=== PATIENT | female | born 1960 | race Caucasian/White ===

== ENCOUNTER 2017-02-11 21:03 | Inpatient (IN) | payer MEDICARE, MEDICAID ==
[~2017-02-11] VITALS: Ht 175.3 cm; Wt 152.0 kg
[~2017-02-11 21:03] MED LIST: ACET325T51 PO; ALBU2.5V4 INHALATION; ALBU8.5H2 INHALATION; AMT25T PO; ASCO-294 PO; BISA10EN RC; CHOL500011 PO; CLOT21CR7 TOPICAL; CYAN10008 PO; FERR-83 PO; FLUT1AER IH; FURO40TA4 PO; HYDR-4003 PO; HYDR200T5 PO; INSU100I13 SUBQ; INSU100I18 SUBQ; LEVO75TA4 PO; LOPE2CAP PO; MAGN400O4 PO; MULT1CAP45 PO; NA P133E23 RC; NYST1POW23 TOPICAL; POLY17PO6 PO; POTA-62 PO; PRE20 PO; PREG50CA PO; TRAM50TA2 PO; ZINC220C7 PO; [UNRECOGNIZED DRUG - CODE] PO
--- NOTE | 2017-02-11 21:06 | ED.REPORT ---
HPI-Extremity Problem Lower Date of Service Feb 11, 2017 ED Provider: Corey Tan MD 56 year old female with a history of diabetes and steroid dependent RA presents to the ER via EMS complaining of several days of right lower extremity pain, swelling and redness. Associated symptoms include three days of fever, shaking chills, dry, cough, and abdominal pain around the pannus area. Patient denies chest pain, SOB, nausea, and vomiting. She does not take anticoagulants, and is not currently on antibiotics. Nursing Notes Stated Complaint: RIGHT LOWER LEG REDNESS Nursing Notes Reviewed: Yes Allergies: Coded Allergies: codeine (Verified Allergy, Intermediate, 02/12/17) Pt states she "passes out" when she takes codeine etodolac (Verified Adverse Reaction, Intermediate, Rash, 02/12/17) Pt states she gets a rash and hives Penicillins (Verified Adverse Reaction, Unknown, 02/12/17) Pt states she has had this since childhood - told by mother - unaware of what the reaction is Uncoded Allergies: SULFA (Adverse Reaction, Mild, Rash, 09/13/09) Scheduled Amino AC/Protein Hydr/Whey Pro (Prosource Protein Liquid) 946 Ml Liquid 30 ML PO BID Amitriptyline (Amitriptyline) 25 Mg Tab 50 MG PO HS Ascorbate Calcium (Vitamin C) 500 Mg Tablet 500 MG PO DAILY Cholecalciferol (Vitamin D3) (Vitamin D3) 5,000 Unit Tablet 5,000 UNIT PO DAILY Cyanocobalamin (Vitamin B-12) (Vitamin B-12) 1,000 Mcg Tablet 1,000 MCG PO DAILY Ferrous Sulfate (Ferrous Sulfate) 325 Mg Tablet 325 MG PO BID Fluticasone/Vilanterol (Breo Ellipta 100-25 Mcg INH) 1 Each Aer.pow.ba 1 EACH IH DAILY Furosemide (Furosemide) 40 Mg Tablet 40 MG PO DAILY Hydrocodone-Acetaminophen 5-325 mg (Hydrocodone-Acetaminophen 5-325 mg) 1 Each Tablet 1 EACH PO TID Hydroxychloroquine Sulfate (Hydroxychloroquine Sulfate) 200 Mg Tablet 200 MG PO DAILY Insulin Glargine (Lantus U100 Solostar Insulin Pen) 100 Unit/1 Ml Insuln.pen 5 UNIT SUBQ QAM Insulin Lispro (HumaLOG U100 Insulin Pen) 100 Unit/1 Ml Insuln.pen UNIT SUBQ ACHS per sliding scale Levothyroxine (Levothyroxine) 75 Mcg Tablet 75 MCG PO DAILY Multivitamin with Minerals (Myvitalife) 1 Each Capsule 1 EACH PO DAILY Nystatin (Nystatin) 1 Each Powder.ea. 1 EACH TOPICAL BID apply to groin Polyethylene Glycol 3350 (Miralax) 17 Gm Powd.pack 17 GM PO DAILY Potassium Chloride ER (Potassium Chloride ER) 20 Meq Tablet.er 40 MEQ PO DAILY TAKE WITH FOOD Prednisone (PredniSONE) 20 Mg Tablet 10 MG PO DAILY Pregabalin (Lyrica) 50 Mg Capsule 50 MG PO TID Zinc Sulfate (Zinc-220) 220 Mg Capsule 220 MG PO DAILY Scheduled PRN Acetaminophen (Acetaminophen) 325 Mg Tablet 650 MG PO Q4H PRN PRN For Pain Albuterol HFA (Proair HFA) 8.5 Gm Hfa.aer.ad 2 PUFFS INHALATION Q4H PRN PRN For Shortness of Breath Albuterol Neb Soln (Albuterol Neb Soln) 2.5 Mg/3 Ml Vial.neb 2.5 MG INHALATION Q4H PRN PRN For Shortness of Breath Bisacodyl (Bisacodyl Rectal) 10 Mg/30 Ml Enema 10 MG RC DAILY PRN PRN For Constipation Clotrimazole 2% (Gyne-Lotrimin 3 2%) 21 Gm Cream.appl 1 APPLIC TOPICAL DAILY PRN PRN groin rash Loperamide (Loperamide) 2 Mg Capsule 2 MG PO QID PRN PRN For Diarrhea or Loose Stool Magnesium Hydroxide (Milk of Magnesia) 400 Mg/5 Ml Oral.susp 30 ML PO DAILY PRN PRN For Constipation Na Phos,M-B/Na Phos,Di-Ba (Fleet Enema) 133 Ml Enema 133 ML RC DAILY PRN PRN For Constipation Tramadol (Tramadol) 50 Mg Tablet 50-100 MG PO Q6H PRN PRN For Pain General Time Seen by MD: 21:05 Chief Complaint Leg injury right Hx Obtained From: Patient Arrived By: Ambulance Onset Occurred: 3 days ago Symptom Duration: Since onset Location: : Leg right Quality: Painful Severity: Current: Moderate Severity: Maximum: Moderate Associated with: Reports: Fever, Denies: Chest pain, Nausea, Vomiting Pertinent Negative: Pt denies other symptoms Past Medical History Past Medical History ho necrotizing fasciitis of groin treated at OSH in March 2016, followed by [facility]. Graves Disease Rheumatoid Arthritis Obesity history of respiratory failure dysphagia obstructive sleep apnea hypothyroidism Reports: Asthma, Diabetes mellitus, GERD, Hypertension Past Surgical History Bilateral Knee Replacements Smoking History Never Smoker Social History Alcohol Use: Denies alcohol use Other Social History: Lives in senior care Review of Systems Constitutional: Reports: Chills, Fever Musculoskeletal: Reports: Extremity pain (Right Leg) Neurologic: Reports: Shaking Complete sys rev & neg: except as marked. Respiratory: Reports: Non-productive cough Cardiovascular: Denies: Chest pain GI: Denies: Nausea, Vomiting Physical Exam Initial Vital Signs Vital Signs (First) Date Time Temp Pulse Resp B/P Pulse Ox O2 Delivery O2 Flow Rate FiO2 02/11/17 21:07 39.0 139 30 109/54 94 Room Air 02/11/17 22:00 3 Initial VS: Reviewed Head / Eyes: Atraumatic, Normocephalic Neck: Supple, Non-tender, Full range of motion Upper Extremities: Vascular intact, Neuro intact, No swelling, No tenderness Skin: Warm, Dry, No cyanosis Neurologic: Alert, Oriented, Nonfocal Lower Extremity / Pelvis / MS: Full range of motion, Neurologic intact, Vascular intact Widespread cellulitis of the right lower extremity extending into the pannus. General/Constitutional: Awake, Alert Distress / Hydration: Positive: Distress mild Appearance / Presentation: Positive: Obese, morbidly Respiratory / Chest: Breath sounds NL, Breath sounds = bilat, No respiratory distress, No rales, No rhonchi, No wheezing Tachypneic. Cardiovascular: Regular rhythm, Heart sounds NL, Peripheral circulation NL Heart Rate / Rhythm: Positive: Tachycardia Female Genitourinary: Consular Officer present External Genitalia: Positive: Erythema present, Tenderness present Mons veneris is tender, red, indurated. Interpretation & Diagnostics Lab Results Interpretation Result Diagram: 02/12/17 0115 02/12/17 0115 Test 02/11/17 21:25 02/11/17 23:27 Erythrocyte Sedimentation Rate 69mm/hr (0-40) Prothrombin Time 11.4sec (8.1-12.5) Prothromb Time International Ratio 1.06ratio Activated Partial Thromboplast Time 36.7sec (22.8-33.0) Magnesium Level 1.4mg/dL (1.6-2.6) Pro-B-Type Natriuretic Peptide 737.9pg/mL (0-287) Lipase 17U/L (13-60) Procalcitonin 1.11ng/mL (0.00-0.08) Urine Color Dark yellow (YELLOW) Urine Appearance Hazy (CLEAR,HAZY) Urine pH 6.5 (5.0-8.0) Urine Specific [place] 1.010 (1.003-1.035) Urine Protein Tracemg/dL (NEG,TRACE) Urine Glucose (UA) Negativemg/dL (NEGATIVE) Urine Ketones Negativemg/dL (NEGATIVE) Urine Occult Blood Negative (NEGATIVE) Urine Nitrite Positive (NEGATIVE) Urine Bilirubin Negative (NEGATIVE) Urine Urobilinogen Normalmg/dL (NORMAL) Urine Leukocyte Esterase Trace (NEGATIVE) Urine RBC 0-2/hpf (0-2) Urine WBC 11-50/hpf (0-5) Urine Epithelial Cells Occasional/hpf (NONE-MOD) Urine Crystals Amorphous urates (NONE Urine Bacteria Many/hpf (NONE-FEW) Urine Hyaline Casts None/lpf (NONE) Urine Granular Casts None seen (NONE SEEN) Urine Waxy Casts None seen (NONE SEEN) Urine Red Blood Cell Casts None seen (NONE SEEN) Urine White Blood Cell Casts None seen (NONE SEEN) Urine Mucus Present (None Seen) Urine Trichomonas None seen (NONE SEEN) Urine Yeast None (NONE SEEN) Urine Culture Reflexed Indicated ECG Interpretation ECG Interpretation: Sinus tachycardia, rate 139 Rate-related ST T wave changes Time: 09:18 Interpreted by: ED physician X-Ray Chest Interpretation Chest Xray Interpretation: Rotated, poor inspiration. Density in the Left lower lobe, probably due to vessel crowding. No indication of pneumonia. View: Portable, 1 view Interpretation / Wet Read by: Wet read ED physician CT Abd / Pelvis Interpretation CONCLUSION: Limited study as described. No acute findings. Cirrhotic changes. Hepatosplenomegaly. Other findings as noted above. Electronically signed by Michael Benitez MD Study type: Abdominal CT IV contrast Interpretation / Wet Read by: Interpret - Radiologist Re-Eval/Medical Decision Med Decision/Clinical Course 56-year-old female with prior history of necrotizing fasciitis, steroid dependency with rheumatoid arthritis, presents with severe cellulitis shaking chills tachycardia and sepsis. Redness is spreading up to the groin and there is pain also in the mons pubis with induration of the fat pad. CT visualizes this well and there is no evident air or other indication of anaerobic infection. She has had blood cultures drawn and is volume resuscitated with 3 L of fluid prior to transfer. Pulse discomfort in the 147 range down to 120 range still not normal. Lactate is elevated at four. She was begun with vancomycin, meropenem, and clindamycin. She is transferred in critical condition to the CCU. Source of Hx: Old records Re-Evaluation/Progress : Time of Eval: 23:35 Patient Status: Pain improved Re-Evaluation/Progress Note: Discussed lab and radiology results and need for admission. Patient is amenable to the plan. All other questions addressed. Consultation : Referral / Consult Name: Levi Feldman MD Consulted With: Hospitalist Call Returned at: 23:49 Pipe Fitter Supervisor: Agrees with eval, Agrees with plan, Accepts admit Counseled Regarding: Diagnosis, Lab results, Need for admission Discharge & Departure Impression: Primary Impression: Sepsis Additional Impressions: Cellulitis of left leg Cellulitis of perineum Disposition: ADMITTED TO HOSPITAL Discharge Condition All VS Reviewed: Yes Condition: Stable Referrals: Fiorella Courtney MD (PCP) Crit Care Except Billable Proc Time Spent: 30-74 minutes Services Performed: Patient management by me, Time spent at bedside, Reviewing test results, Reviewing imaging, Discussing patient care, Documentation in record Scribe Attestation Portions of this note were transcribed by Shawn Haskins. I, Dr. Tan, personally performed the history, physical exam and medical decision-making; I reviewed and confirmed the accuracy of the information in the transcribed note. Signed by: Paolo Nickerson. 02/12/2017 - 00:18 copies to: Fiorella Courtney MD, Christopher W MD Feb 11, 2017 21:06 SHAWN HASKINS Feb 11, 2017 21:22 Urine Epithelial Cells Occasional/hpf (NONE-MOD) Urine Crystals Amorphous urates (NONE Urine Bacteria Many/hpf (NONE-FEW) Urine Hyaline Casts None/lpf (NONE) Urine Granular Casts None seen (NONE SEEN) Urine Waxy Casts None seen (NONE SEEN) Urine Red Blood Cell Casts None seen (NONE SEEN) Urine White Blood Cell Casts None seen (NONE SEEN) Urine Mucus Present (None Seen) Urine Trichomonas None seen (NONE SEEN) Urine Yeast None (NONE SEEN) Urine Culture Reflexed Indicated ECG Interpretation ECG Interpretation: Sinus tachycardia, rate 139 Rate-related ST T wave changes Time: 09:18 Interpreted by: ED physician X-Ray Chest Interpretation Chest Xray Interpretation: Rotated, poor inspiration. Density in the Left lower lobe, probably due to vessel crowding. No indication of pneumonia. View: Portable, 1 view Interpretation / Wet Read by: Wet read ED physician CT Abd / Pelvis Interpretation CONCLUSION: Limited study as described. No acute findings. Cirrhotic changes. Hepatosplenomegaly. Other findings as noted above. Electronically signed by Michael Benitez MD Study type: Abdominal CT IV contrast Interpretation / Wet Read by: Interpret - Radiologist Re-Eval/Medical Decision Source of Hx: Old records Re-Evaluation/Progress : Time of Eval: 23:35 Patient Status: Pain improved Re-Evaluation/Progress Note: Discussed lab and radiology results and need for admission. Patient is amenable to the plan. All other questions addressed. Consultation : Referral / Consult Name: Levi Feldman MD Consulted With: Hospitalist Call Returned at: 23:49 Pipe Fitter Supervisor: Agrees with eval, Agrees with plan, Accepts admit Counseled Regarding: Diagnosis, Lab results, Need for admission Discharge & Departure Impression: Primary Impression: Sepsis Additional Impressions: Cellulitis of left leg Cellulitis of perineum Disposition: ADMITTED TO HOSPITAL Discharge Condition All VS Reviewed: Yes Condition: Stable Referrals: Fiorella Courtney MD (PCP) Crit Care Except Billable Proc Time Spent: 30-74 minutes Services Performed: Patient management by me, Time spent at bedside, Reviewing test results, Reviewing imaging, Discussing patient care, Documentation in record Scribe Attestation Portions of this note were transcribed by Shawn Haskins. I, Dr. Tan, personally performed the history, physical exam and medical decision-making; I reviewed and confirmed the accuracy of the information in the transcribed note. Signed by: Paolo Nickerson. 02/12/2017 - 00:18 copies to: Fiorella Courtney MD, Christopher W MD Feb 11, 2017 21:06 SHAWN HASKINS Feb 11, 2017 21:22
[2017-02-11 21:07] VITALS: BP 109/54; PULSE 139; RESP 30; O2SAT 94
[2017-02-11] MEDS ORDERED: Meropenem Inj 1,000 MG in 0.9% Sodium Chloride 100 ML IV ONE (21:20)
[2017-02-11] MEDS ORDERED: Vancomycin Dose per Pharmacist XX ONE (21:20)
[2017-02-11] MEDS ORDERED: Hydrocortisone 50 mg/mL 2 mL Inj IV ONE (21:20)
[2017-02-11] MEDS ORDERED: Clindamycin Inj 900 MG in IV Premix 1 EACH IV ONE (21:20)
[2017-02-11] MEDS ORDERED: Vancomycin Inj 2,250 MG in 0.9% Sodium Chloride 500 ML IV ONE (21:30)
[2017-02-11] MEDS: 0.9% Sodium Chloride 1,000 ML IV PRN ×3 (21:31→23:36)
[2017-02-11 21:39] LABS: BASOPHILS % (AUTO) 0.3 % (0-3); EOSINOPHILS % (AUTO) 0.5 % (0-5); MONOCYTES % (AUTO) 6.1 % (4-12); Mean Corpuscular Hemoglobin 30.3 pg (27.0-35.0); Mean Corpuscular Volume 92.4 fL (81-100); NEUTROPHILS % (AUTO) 77.8 % (40-74); Platelet Count 83 bil/L (150-400)
--- NOTE | 2017-02-11 21:42 | ABG ---
DateTimeAnalyzed 21:39:00 -_ pH ____7.466 - 7.350 7.450 pCO2 ___37.0__ -mmHg 35.0 45.0 pO2 ___52.8__ -mmHg 69.0 116 HCO3- ___26.3__ -mmol/L 22.0 26.0 ABE ____3.1__ -mmol/L -2.0 2.0 tHb ___14.0__ -g/dL O2Hb ___87.8__ -% COHb ____2.0__ -% MetHb ____0.7__ -% sO2 ___90.2__ -% FIO2 ___21.0__ -% Drawn By AF - Date/Time Notified____ 21:41:00 -_ Notified By AF - Notified Whom ___Dr. Tan - B 762 -mmHg tO2 ___17.3__ -Vol% OrderingPhysicianInitials CR - Jaswinder test _Positive -
[2017-02-11 21:56] LABS: INR 1.06 ratio
[2017-02-11] MEDS ORDERED: 0.9% Sodium Chloride 100 ML ONE (21:58)
[2017-02-11 22:00] VITALS: BP 94/49; PULSE 139; RESP 35; O2SAT 100
[2017-02-11 22:21] LABS: ERYTHROCYTE SEDIMENTATION RATE 69 mm/hr (0-40)
[2017-02-11 22:23] LABS: Magnesium 1.4 mg/dL (1.6-2.6)
[2017-02-11 22:28] LABS: TROPONIN T 0.127 ug/L (0.0-0.011)
[2017-02-11 23:00] VITALS: BP 103/47; PULSE 141; RESP 28; O2SAT 97
[2017-02-12] VITALS (13 sets, daily range): BP systolic 94–118; BP diastolic 45–74; PULSE 84–132; RESP 11–32; O2SAT 92–97
[2017-02-12] MEDS ORDERED: HYDROmorphone 0.5 mg/0.5 mL iSecure Syringe IVPUSH PRN (00:30)
[2017-02-12] MEDS ORDERED: Ondansetron 2 mg/mL 2 mL Inj IVPUSH PRN ×2 (00:30→00:40)
--- NOTE | 2017-02-12 00:37 | PCM.HPMED ---
Subjective Date of Service Feb 12, 2017 Primary Provider: Admitting Physician: Primary Care Physician: Fiorella Courtney MD Attending Physician: Chief Complaint: Right Lower leg redness History of Present Illness: Patient is a 56 y.o. F with past medical history of necrotizing fasciitis in the right groin area, status post lengthy hospitalization at [facility] in March and April, during which time she underwent extensive surgical debridement, ultimately with discharge to [facility] for ongoing care, morbid obesity, has uncontrolled type II diabetes, and RA. She presented to ED via EMS with complaint of several day pain of right lower extremity with redness and swelling. Patient stated that two days ago she noticed bleeding from her right groin, and redness and swelling to the skin with increased warmth and pain, over the next 24 hours she stated that the redness spread to the left groin an down her right upper thigh. Today patient noted that the redness, swelling, pain spread down her right leg to her ankle. Additionally, prior to admission patient began to experience "hot flashes," dizziness, chills , fast heart beat, cough and increased pain over her right leg. Patient described the pain as sharp, severe rated 7/10 diffusely to her right groin and leg. Pain is made worse by palpation and movement, pain is relieved by nothing. Patient stated that she had a similar skin infection months ago but no where near this bad, patient last seen by wound care clinic 09/26/16 for followup and treatment of the wound involving right groin and right lower abdomen that was initially an abscess that was drained surgically. She denies shortness of breath , chest pain, chest pressure, change in vision, headache, syncope, recent use of antibiotics, use of anticoagulants. In ED given IV Vancomycin, Meropenem, Clindamycin, 3 L NS with refractory hypertension. Review of Systems: A comprehensive review of systems was conducted with the patient and found to be negative except as above in the History of Present Illness. Allergies Coded Allergies: codeine (Verified Allergy, Intermediate, 02/12/17) Pt states she "passes out" when she takes codeine etodolac (Verified Adverse Reaction, Intermediate, Rash, 02/12/17) Pt states she gets a rash and hives Penicillins (Verified Adverse Reaction, Unknown, 02/12/17) Pt states she has had this since childhood - told by mother - unaware of what the reaction is Uncoded Allergies: SULFA (Adverse Reaction, Mild, Rash, 09/13/09) Home Medications Amino AC/Protein Hydr/Whey Pro (Prosource Protein Liquid) 946 Ml Liquid 30 ML PO BID Amitriptyline (Amitriptyline) 25 Mg Tab 50 MG PO HS Ascorbate Calcium (Vitamin C) 500 Mg Tablet 500 MG PO DAILY Cholecalciferol (Vitamin D3) (Vitamin D3) 5,000 Unit Tablet 5,000 UNIT PO DAILY Cyanocobalamin (Vitamin B-12) (Vitamin B-12) 1,000 Mcg Tablet 1,000 MCG PO DAILY Ferrous Sulfate (Ferrous Sulfate) 325 Mg Tablet 325 MG PO BID Fluticasone/Vilanterol (Breo Ellipta 100-25 Mcg INH) 1 Each Aer.pow.ba 1 EACH IH DAILY Furosemide (Furosemide) 40 Mg Tablet 40 MG PO DAILY Hydrocodone-Acetaminophen 5-325 mg (Hydrocodone-Acetaminophen 5-325 mg) 1 Each Tablet 1 EACH PO TID Hydroxychloroquine Sulfate (Hydroxychloroquine Sulfate) 200 Mg Tablet 200 MG PO DAILY Insulin Glargine (Lantus U100 Solostar Insulin Pen) 100 Unit/1 Ml Insuln.pen 5 UNIT SUBQ QAM Insulin Lispro (HumaLOG U100 Insulin Pen) 100 Unit/1 Ml Insuln.pen UNIT SUBQ ACHS per sliding scale Levothyroxine (Levothyroxine) 75 Mcg Tablet 75 MCG PO DAILY Multivitamin with Minerals (Myvitalife) 1 Each Capsule 1 EACH PO DAILY Nystatin (Nystatin) 1 Each Powder.ea. 1 EACH TOPICAL BID apply to groin Polyethylene Glycol 3350 (Miralax) 17 Gm Powd.pack 17 GM PO DAILY Potassium Chloride ER (Potassium Chloride ER) 20 Meq Tablet.er 40 MEQ PO DAILY TAKE WITH FOOD Prednisone (PredniSONE) 20 Mg Tablet 10 MG PO DAILY Pregabalin (Lyrica) 50 Mg Capsule 50 MG PO TID Zinc Sulfate (Zinc-220) 220 Mg Capsule 220 MG PO DAILY Acetaminophen (Acetaminophen) 325 Mg Tablet 650 MG PO Q4H PRN PRN For Pain Albuterol HFA (Proair HFA) 8.5 Gm Hfa.aer.ad 2 PUFFS INHALATION Q4H PRN PRN For Shortness of Breath Albuterol Neb Soln (Albuterol Neb Soln) 2.5 Mg/3 Ml Vial.neb 2.5 MG INHALATION Q4H PRN PRN For Shortness of Breath Bisacodyl (Bisacodyl Rectal) 10 Mg/30 Ml Enema 10 MG RC DAILY PRN PRN For Constipation Clotrimazole 2% (Gyne-Lotrimin 3 2%) 21 Gm Cream.appl 1 APPLIC TOPICAL DAILY PRN PRN groin rash Loperamide (Loperamide) 2 Mg Capsule 2 MG PO QID PRN PRN For Diarrhea or Loose Stool Magnesium Hydroxide (Milk of Magnesia) 400 Mg/5 Ml Oral.susp 30 ML PO DAILY PRN PRN For Constipation Na Phos,M-B/Na Phos,Di-Ba (Fleet Enema) 133 Ml Enema 133 ML RC DAILY PRN PRN For Constipation Tramadol (Tramadol) 50 Mg Tablet 50-100 MG PO Q6H PRN PRN For Pain PMH necrotizing fasciitis of groin treated at OSH in March 2016, followed by [facility]. Graves Disease Rheumatoid Arthritis Obesity history of respiratory failure dysphagia obstructive sleep apnea hypothyroidism Asthma Diabetes mellitus GERD Hypertension Surgical History Bilateral Knee Replacements Family History Mom has hypertension and diabetes, hyperlipidemia and arthritis. Father has diabetes Social History Hx Alcohol Use: No Hx Substance Use: No Hx Tobacco Use: No Smoking Status: Never Smoker Exam Vital Signs Vital Sign - Last Date Time Temp Pulse Resp B/P Pulse Ox O2 Delivery O2 Flow Rate FiO2 02/11/17 23:00 141 28 103/47 97 Simple Mask 3 02/11/17 21:07 39.0 Intake and Output 02/11/17 02/11/17 02/12/17 Cumulative From/Thru 14:59 22:59 06:59 02/11/17 21:07 - 02/11/17 23:36 Intake Total 2000 ml 1000 ml 3000 ml Balance 2000 ml 1000 ml 3000 ml Intake IV Total 2000 ml 1000 ml 3000 ml Exam General: No acute distress, morbid obesity, appropriately interactive HEENT: Normocephalic, atraumatic. External ears without defect. Pupils equal, round, and reactive to light and accommodation. Anicteric sclerae, dry conjunctivae, and no lid lag. Oropharynx free of erythema and cobble stoning with dry mucosa. Neck: Supple with full range of motion. No jugular venous distension. No bruits. No lymphadenopathy or thyromegaly. Cardiovascular: Tachycardic and normal rhythm with no murmurs, rubs, or gallops appreciated Pulmonary: Wide A-P diameter, Scant expiratory wheezing diffusely in lungs, diminished breath sounds at bases, no crackles, wheezes, or rhonchi. Normal respiratory effort with no use of accessory muscles. Lung sounds difficult to appreciate due to body habitus Abdomen: Bowel tones present. Soft, nontender, nondistended. No hepatosplenomegaly or masses appreciated. Large pannus, with erythema under folds, satellite lesions Extremities: Left extremity without erythema, tenderness. Right extremity tender to touch, circumferential diffuse blanching erythema noted from inguinal fold to ankle with approximately 4 cm diameter of induration over proximal lateral right thigh. Periperal pulses intact but notably weaker on right LE compared to left. no subcutaneous emphysema felt on exam Skin: Right leg temperature warm to touch compared to left, normal turgor, erythema of right leg described above, erythema extends into right groin from mons pubis bilaterally to perineum, no subcutaneous emphysema felt on exam Neurological: Cranial nerves grossly intact. Normal muscle strength, tone, and bulk. Reflexes, coordination, and sensory function within normal limits. No known gait impairment. : Em cath in place draining dark urine, erythema of mon pubis extending bilaterally to perineum Psychiatric: Normal mood and affect. Alert and oriented to person, place, and time. Lab and Diagnostics Result Diagram: 02/11/17212402/[id number] X-Rays, CTs and MRIs Chest Xray Interpretation: Rotated, poor inspiration. Density in the Left lower lobe, probably due to vessel crowding. No indication of pneumonia. View: Portable, 1 view Interpretation / Wet Read by: Wet read ED physician CT Abd / Pelvis Interpretation CONCLUSION: Limited study as described. No acute findings. Cirrhotic changes. Hepatosplenomegaly. Other findings as noted above. Electronically signed by Michael Benitez MD Study type: Abdominal CT IV contrast Interpretation / Wet Read by: Interpret - Radiologist 12-lead ECG ECG Interpretation: Sinus tachycardia, rate 139 Rate-related ST T wave changes Time: 09:18 Interpreted by: ED physician Additional Diagnostics: ABG DateTimeAnalyzed 21:39:00 -_ pH ____7.466 - 7.350 7.450 pCO2 ___37.0__ -mmHg 35.0 45.0 pO2 ___52.8__ -mmHg 69.0 116 HCO3- ___26.3__ -mmol/L 22.0 26.0 Assessment & Plan Patient is a 56 y.o. F with past medical history of necrotizing fasciitis in the right groin area, status post lengthy hospitalization at [facility] in [place] in March and April, during which time she underwent extensive surgical debridement, ultimately with discharge to [facility] for ongoing care, morbid obesity, has uncontrolled type II diabetes, and RA. Patient is admitted for treatment of sepsis, right lower leg cellulitis extending to groin and perineum, elevated troponin, hyperglycemia, azotemia. 1. Sepsis, acute - Patient on admission to ED tachycardic, febrile 39 C, hypertensive, procal 1.11, lactic acid 4.0, WCT 3.9 with left shift, ESR 69 - Likely source of infection right lower leg cellulites, - Repeat CBC, CMP, Lactic, blood cultures now - Hypotension refractory s/p 3L NS in ED - Continue fluid resuscitation per sepsis protocol, stop NS after 2 L on unit continue with LR at matiance rate 150 mls/hr keep MAP >65 - Continue broad spectrum IV antibiotics: Vancomycin, Meropenim, ciprofloxacin - Blood cultures ordered x 3 - Blood fungal cultures ordered, pending - MRSA screen ordered, pending - Trend Lactic Acid Q2 until normalizes, repeat 2.1 - Streptozyme assay ordered, pending - Keep patient NPO - Repeat Procal in AM - Repeat CBC in AM - Repeat CMP in AM - Repeat ABG in AM - Patient reassess periodoically throughout the shift, with minimal response to IVF resuscitation, MAP fell below 60, IV pressor Noreepi statered per protocol - Consult ID in AM 2. Right leg Cellulitis. Present on admission - US showed no crepitus, gas bubbles in tissue, exam limited by patient's body habitus - Consider CT should patient not improve with IV antibiotics - Wound care consulted - Wound care orders places - Continue antibiotics as above #1 - Consult ID as above #1 3. Elv trop, acute - no chest pain at admission, Likely demand ischemia vs NSTEMI - no ST changes signifant for STEMI in ED - Trend troponin Q6, 0.127 at admission repeat 0.156 - Heparin drip started in the setting of dropping pressures and rising troponin , to protect from suspected ischemic cardiogenic shock - Repeat limited ECHO orderedecho - Continue to monitor - Stat EKG for CP - Morphine 1g Q15 PRN for CP, hold for map < 65 - Nitoglycerin 0.4 SL PRN chest pain 4. Hyperglycemia non hyperosmolar non DKA - Continue home dose Lantus 5 units HS - High correctional scale ordered - Continue to monitor 5. Hypomagnesemia, acute - 2g magnesium sulfate IV, given slowly - Monitor for change in BP - Repeat Magnesium level in AM 6. Transaminitis, acute - Elv AST 51, ALT 58, Alk phos 187 on admission - Likely due to sepsis and dehydration - Improving with fluid resuscitation 7. Azotemia, acute - Em cath in place draining dark urine in small amounts - BUN and Cr normal - Continue fluid resuscitation as above #1 - Bladder scan ordered 8. Alkalosis, acute - Likely contraction alkalosis vs respiratory alkalosis less likely as CO2 normal - Patient dehydrated on presentation, CL 91 - ABG pH 7.66 - Continue fluid resuscitation as above #1 Chronic HFpEF -ejection fraction is estimated to be 55-60%. -Repeat echo Graves Disease -Continue home levothyroxine dose Rheumatoid Arthritis - On chronic steroids - Patient given stress dose of steroid in ED - Continue steroid use 10 mg QD Morbid Obesity - Continue to monitor History of respiratory failure - Continue to monitor dysphagia - Swallow Eval ordered obstructive sleep apnea - CPAP PRN HS ordered Asthma -Duoneb Q6 PRN Diabetes mellitus - Continue to monitor - Managed as above #4 GERD - GI prophlyaxis ordered Hypertension - Hold home meds until BP improves Pain Evaluation: Adequate Pain Control GI Prophylaxis: H2 aric VTE Prophylaxis: Sub-Q Heparin (Unfractionated) Resuscitation Status: CPR: Attempt Resuscitation Attending Statement The patient was seen and examined together with Dr. Hylton on 02/11 and I agree with the history, exam and plan as outlined in the note above. IJEOMA HYLTON DO Feb 12, 2017 00:37 Levi Feldman MD Feb 12, 2017 06:49
[2017-02-12] MEDS ORDERED: Lactated Ringer's 1,000 ML IV PRN (00:38)
[2017-02-12] MEDS ORDERED: 0.9% Sodium Chloride 1,000 ML IV SCH (00:38)
[2017-02-12] MEDS ORDERED: Vancomycin Dose per Pharmacist XX SCH (00:40)
[2017-02-12 01:07] LABS: APPEARANCE,URINE HAZY (CLEAR,HAZY); COLOR,URINE DARK YELLOW (YELLOW); OCCULT BLOOD,URINE NEGATIVE (NEGATIVE); PH,URINE 6.5 (5.0-8.0); UROBILINOGEN,URINE NORMAL (NORMAL)
--- NOTE | 2017-02-12 01:54 | PCM.CONPHA ---
Subjective Date of Service: Feb 12, 2017 Requesting Provider: IJEOMA HYLTON DO Right Lower leg redness Reason for Pharmacy Consult: Vancomycin Dosing Objective Vital Signs Date Time Temp Pulse Resp B/P Pulse Ox O2 Delivery O2 Flow Rate FiO2 02/12/17 01:41 129 32 103/54 92 Nasal Cannula 02/11/17 23:00 141 28 103/47 97 Simple Mask 3 02/11/17 22:00 139 35 94/49 100 Simple Mask 3 02/11/17 21:07 39.0 139 30 109/54 94 Room Air Intake and Output 02/10/17 02/11/17 02/12/17 00:00 00:00 00:00 Intake Total 3000 ml Balance 3000 ml Weight (Kilograms): 147.100 Height (Feet): 5 Height (Inches): 9.00 Test 02/11/17 21:25 02/11/17 23:27 02/12/17 01:15 Erythrocyte Sedimentation Rate 69mm/hr (0-40) Prothrombin Time 11.4sec (8.1-12.5) Prothromb Time International Ratio 1.06ratio Activated Partial Thromboplast Time 36.7sec (22.8-33.0) Magnesium Level 1.4mg/dL (1.6-2.6) Pro-B-Type Natriuretic Peptide 737.9pg/mL (0-287) Lipase 17U/L (13-60) Procalcitonin 1.11ng/mL (0.00-0.08) Urine Color Dark yellow (YELLOW) Urine Appearance Hazy (CLEAR,HAZY) Urine pH 6.5 (5.0-8.0) Urine Specific [place] 1.010 (1.003-1.035) Urine Protein Tracemg/dL (NEG,TRACE) Urine Glucose (UA) Negativemg/dL (NEGATIVE) Urine Ketones Negativemg/dL (NEGATIVE) Urine Occult Blood Negative (NEGATIVE) Urine Nitrite Positive (NEGATIVE) Urine Bilirubin Negative (NEGATIVE) Urine Urobilinogen Normalmg/dL (NORMAL) Urine Leukocyte Esterase Trace (NEGATIVE) Urine RBC 0-2/hpf (0-2) Urine WBC 11-50/hpf (0-5) Urine Epithelial Cells Occasional/hpf (NONE-MOD) Urine Crystals Amorphous urates (NONE Urine Bacteria Many/hpf (NONE-FEW) Urine Hyaline Casts None/lpf (NONE) Urine Granular Casts None seen (NONE SEEN) Urine Waxy Casts None seen (NONE SEEN) Urine Red Blood Cell Casts None seen (NONE SEEN) Urine White Blood Cell Casts None seen (NONE SEEN) Urine Mucus Present (None Seen) Urine Trichomonas None seen (NONE SEEN) Urine Yeast None (NONE SEEN) Urine Culture Reflexed Indicated Assessment/Plan Assessment/Plan A: * Vancomycin dosing by pharmacy for 56 y/o obese, diabetic woman with sepsis and cellulitis * The patient is also being started on clindamycin and meropenem * She received a vancomycin loading dose of 2250 mg IV in the ED * Estimated CrCl is 96 mL/min (Cockcroft & Gault using lean body weight) * Estimated vancomycin half-life is 8 hours and estimated Vd is 87 liters (0.55 L/kg) P: * Starting vancomycin 1500 mg IV every 8 hours * Target a vancomycin trough of 15 - 20 mcg/mL (18 - 20 preferable) * Drawing a trough level prior to the fourth dose * Monitor renal function closely Thank you. Pharmacy will continue to follow this patient. Brianne Bocanegra, PharmD Brianne Bocanegra Feb 12, 2017 01:54
[2017-02-12] MEDS ORDERED: Sodium Chloride LOK Flush 10 mL Syringe IVFLUSH PRN ×2 (02:10)
[2017-02-12 02:11] LABS: Phosphorus 2.2 mg/dL (2.5-4.9)
[2017-02-12 02:12] LABS: Mean Corpuscular Hemoglobin 30.6 pg (27.0-35.0); Mean Corpuscular Volume 93 fL (81-100)
[2017-02-12] MEDS: 0.9% Sodium Chloride 1,000 ML IV SCH ×9 (02:12→13:58)
[2017-02-12 02:13] LABS: BASOPHILS % (AUTO) 0 % (0-3); EOSINOPHILS % (AUTO) 0.2 % (0-5); MONOCYTES % (AUTO) 6.8 % (4-12); NEUTROPHILS % (AUTO) 81.2 % (40-74); Platelet Count 78 bil/L (150-400)
[2017-02-12] MEDS ORDERED: Magnesium Sulf 2 Gm/50mL Water 2 GM in IV Premix 1 EACH IV ONE (02:45)
[2017-02-12] MEDS: Clindamycin Inj 900 MG in IV Premix 1 EACH IV SCH ×3 (02:47→17:17)
[2017-02-12] MEDS ORDERED: Glucose 40% Oral Gel 15 Gm Tube PO PRN (02:50)
[2017-02-12] MEDS ORDERED: Albuterol-Ipratropium 3 mL Inhalation Solution NEB PRN (03:20)
--- NOTE | 2017-02-12 04:23 | ABG ---
DateTimeAnalyzed 04:19:00 -_ pH ____7.332 - 7.350 7.450 pCO2 ___49.9__ -mmHg 35.0 45.0 pO2 ___88.4__ -mmHg 69.0 116 HCO3- ___25.7__ -mmol/L 22.0 26.0 ABE ___-0.2__ -mmol/L -2.0 2.0 tHb ___12.0__ -g/dL O2Hb ___94.9__ -% COHb ____1.6__ -% MetHb ____0.9__ -% sO2 ___97.3__ -% FIO2 ___28.0__ -% Drawn By LT - Date/Time Notified____ 04:22:00 -_ Notified By LT - Notified Whom ROBERTO, RN - B 761 -mmHg tO2 ___16.1__ -Vol% Jaswinder test _Positive -
[2017-02-12 04:45] LABS: BASOPHILS % (AUTO) 0 % (0-3); EOSINOPHILS % (AUTO) 0.2 % (0-5); MONOCYTES % (AUTO) 7.1 % (4-12); Mean Corpuscular Hemoglobin 30.1 pg (27.0-35.0); Mean Corpuscular Volume 93.8 fL (81-100); NEUTROPHILS % (AUTO) 77.9 % (40-74); Platelet Count 78 bil/L (150-400)
[2017-02-12] MEDS ORDERED: Furosemide 10 mg/mL 4 mL Inj IVPUSH ONE (04:45)
[2017-02-12] MEDS ORDERED: predniSONE 10 mg Tablet PO SCH (04:48)
[2017-02-12 04:50] LABS: Magnesium 1.7 mg/dL (1.6-2.6); Phosphorus 3.1 mg/dL (2.5-4.9)
[2017-02-12] MEDS ORDERED: Norepineph 8,000 mCg/250 mL NS 8,000 MCG in IV Premix 1 EACH IV SCH (05:00)
[2017-02-12] MEDS ORDERED: Norepinephrine 8,000 mCg/250 mL NS Premix IV ONE (05:00)
[2017-02-12] MEDS ORDERED: Heparin 5,000 Unit/mL Inj IVPUSH ONE (05:10)
[2017-02-12] MEDS ORDERED: Heparin 5,000 Unit/mL Inj IVPUSH PRN (05:10)
[2017-02-12] MEDS ORDERED: Heparin 25K Unit/500mL 0.45 NS 25,000 UNIT in IV Premix 1 EACH IV SCH (05:10)
[2017-02-12] MEDS: Lactated Ringer's 1,000 ML IV SCH ×4 (06:40→15:28)
[2017-02-12] MEDS ORDERED: KCl 40 mEq/500 mL D5W (Peripheral Line) IV ONE ×2 (07:45)
--- NOTE | 2017-02-12 07:48 | NUR ---
Admit Transferred from ED via stretcher at 0145, alert and oriented times 3, received 3 liters of NS in ED, started number 4, Right leg from groin to foot very hot red, rash, swollen, open areas on right side of groin between pannus and groin folds, foul odor with serous drainage, Mons very swollen and hot red. Temp 39.5 oral. Pt states had 3 days of pain, swelling, redness, which started left groin crossing over to the right side and down the entire right leg. BG 227, receiving NS at 500 mls hour, orders to maintain map of 65. SEE FLOW records. Dr Nagy contacted unable to maintain a map of 65, pt has received 7 liters of fluid, pt placed on Norepinephrine 0.04mcg/kg/min, Heparin 1,000 units /hour, LR at 150 mls/hour. See flow records
[2017-02-12] MEDS: Insulin LISPRO 300 Unit/3 mL Inj SUBQ SCH ×4 (07:57→20:51)
[2017-02-12] MEDS: Nystatin 100,000 Unit/Gm 15 Gm Powder TOPICAL SCH ×2 (08:18→20:25)
[2017-02-12] MEDS ORDERED: Famotidine Inj 20 MG in IV Premix 1 EACH IV SCH (08:30)
[2017-02-12] MEDS ORDERED: Heparin 5,000 Unit/mL Inj SUBQ SCH (08:30)
--- NOTE | 2017-02-12 08:56 | DRSVH ---
PROCEDURE: CT ABDOMEN AND PELVIS WITH CONTRAST ([id number]) INDICATIONS: cellulitis perineum. TECHNIQUE: After the administration of intravenous contrast, 5 mm thick sections acquired from the diaphragm to the symphysis. 5 mm coronal and sagittal reformats were acquired. For radiation dose reduction, the following was used: automated exposure control, adjustment of mA and/or kV according to patient siz e. COMPARISON: None. FINDINGS: Image quality: There are motion artifacts. ABDOMEN: Lung bases: Bibasilar atelectasis and respiratory motions. Heart size is normal. Solid organs: Liver demonstrates nodular contour suggesting cirrhosis. There is a 1.3 cm hypodensity in the central liver, probably a cyst. There is a small amount of fluid around liver. Spleen is in si ze and enhancement. Gallbladder is mildly distended. No gallstones. Biliary system is non dilated. Pancreas enhances normally. No adrenal nodules. Kidneys demonstrate normal size and enhancement, w ithout hydronephrosis. Peritoneum and bowel: Bowel loops demonstrate normal wall thickness and caliber. No free fluid or a ir. Nodes and vessels: No retroperitoneal or mesenteric adenopathy by size criteria. Aorta and inferior vena cava are normal in size. Miscellaneous: Small periumbilical hernia noted. PELVIS: Genitourinary: There is a Em catheter. Bladder is contracted. Miscellaneous: No inguinal hernias or adenopathy. Bones: No suspicious bony lesions. No vertebral body compression fractures. Degenerative changes i n lumbar spine. IMPRESSION: 1. Limited examination due to motion artifacts. 2. Nodular contour liver consistent with cirrhosis. Please correlate with liver enzymes. 3. A 1.3 cm indeterminate hypodense nodule in central liver. In this patient with liver disease, furt her evaluation with liver protocol CT or MRI is suggested. 4. A small amount of ascites. Please note impression #3 which is not mentioned in the preliminary report. Dictated by: Sae Fishman M.D. on 02/12/2017 at 8:52 Transcribed by: LAURA on 02/12/2017 at 8:56 Approved by: Sae Fishman M.D. on 02/12/2017 at 10:44
--- NOTE | 2017-02-12 09:11 | DRSVH ---
PROCEDURE: X-RAY CHEST ONE VIEW, PORTABLE ([id number]) INDICATIONS: SHORTNESS OF BREATH TECHNIQUE: One view of the chest was acquired. COMPARISON: [facility], CR, XR CHEST 1VW (PORTABLE), 07/11/2016, 7:26. [facility], CR, XR CHEST 1VW (PORTABLE), 07/09/2016, 16:14. [facility], CR, XR CHEST 1VW (PORT ABLE), 02/12/2017, 5:18. FINDINGS: Surgical changes and devices: None. Lungs and pleura: No pleural effusions or pneumothorax. Bibasilar streaky densities present likely atelectasis. Mediastinum: Mediastinal contours appear normal. Heart size is normal. Bones and chest wall: No suspicious bony lesions. Overlying soft tissues appear unremarkable. IMPRESSION: Streaky bibasilar opacities likely atelectasis. Correlate clinically. Dictated by: Bob Medina [facility] Interpreted: Sae Fishman MD on 02/12/2017 at 9:10 Transcribed by: BRANDIE on 02/12/2017 at 9:11 Approved by: Sae Fishman M.D. on 02/12/2017 at 10:53
[2017-02-12] MEDS ORDERED: Hydrocortisone 10 mg Tablet PO SCH (09:15)
[2017-02-12] MEDS: Meropenem Inj 2,000 MG in 0.9% Sodium Chloride 100 ML IV SCH ×2 (09:51→17:02)
[2017-02-12] MEDS: Hydroxychloroqine 200 mg Tablet PO SCH (10:12)
[2017-02-12] MEDS ORDERED: Hydrocortisone 50 mg/mL 2 mL Inj IVPUSH SCH ×2 (10:13→20:30)
--- NOTE | 2017-02-12 10:21 | DRSVH ---
[facility] [address] [place] [address] Echocardiogram Report Name: LUIS ANGEL IRENE EStudy Date : 02/12/2017 Height: 6 9 in Hospital Exam Location: [facility] Weight: 3 24 lb Gender: Female BSA: 2.5 m2 : 1960 Age: 56 yrs BP: 117/6 2 mmHg Reason For Study: Endocarditis Ordering Physician: HOSPITALIST [facility] Performed By: Rahel Ha Referring Physician: Dr. Fiorella Courtney Interpretation Summary The left ventricle is mildly dilated. The ejection fraction is estimated to be 50-55%. There is apical inferior wall hypokinesis. The E/A ratio is reversed with an elevated E/E', suggesting impaired early relaxation of the left ventricle with possible increased filling pressures. Consider JACQUELIN if clinically indicated. There is no significant valvular heart disease. Procedure: A two-dimensional transthoracic echocardiogram with color flow and Doppler was performed. The study quality was technically adequate. Comparison is made with the echocardiogram of 07-13-16. The heart rate ranged between 95-96 bpm during the study. Left Ventricle: The left ventricle is mildly dilated. There is normal left ventricular wall thickness. The ejection fraction is estimated to be 50-55%. There is apical inferior wall hypokinesis. The E/A ratio is reversed with an elevated E/E', suggesting impaired early relaxation of the left ventricle with possible increased filling pressures. Right Ventricle: The right ventricle is normal in size and function. Atria: The left atrium is mildly dilated. Right atrial size is normal. The interatrial septum is intact with no evidence for an atrial septal defect. Mitral Valve: The mitral valve is normal in structure and function. There is no mitral regurgitation noted. Aortic Valve: The aortic valve is trileaflet. The aortic valve opens well. No aortic regurgitation is present. Tricuspid Valve: The tricuspid valve is normal in structure and function. There is a trace or physiologic amount of tricuspid regurgitation. The right ventricular systolic pressure is estimated at 22 mmHg assuming a right atrial pressure of 3 mm Hg. Pulmonic Valve: The pulmonic valve is not well visualized. Great Vessels: The aortic root is normal size. The dimensions of the ascending aorta are normal. The IVC is of normal diameter and collapses greater than 50% with a sniff. This suggests a low right atrial pressure of 3 mm Hg. Pericardium/ Pleura There is no pericardial effusion. There is no pleural effusion. MMode/2D Measurements & Calculations LVIDd: 5.8 cm LA dimension: 4.4 cm RA long axis Ao root diam LVIDs: 4.0 cm FS: 31.5 % LA A2 area: 28.2 cm RA area Aortic Jxn IVSd: 0.94 cm LA A4 area: 22.1 cm LVPWd: 0.88 cm LA length (vol): 5.4 cm : 15.9 cm asc Aorta LA vol: 97.1 ml RA vol: 48.9 mlDiam: 3.2 cm LA vol index RA : 19.3 mm/ RVDd major IVC diam: 1.8 cm : 5.1 cm LV freitas. diameter/BSA LV sys. diameter/BSA RVD1 (basal) RVD2 (mid) (cm/m^2): 2.3 (cm/m^2): 1.6 : 3.0 cm Doppler Measurements & Calculations Ao V2 max MV E max clay MV E/A: 1.1 TR max clay : 140.3 cm/sec : 119.1 cm/sec Med Peak E' Clay : 220.2 cm/sec Ao max PG MV A max clay TR max PG : 7.9 mmHg : 105.0 cm/sec E/E' med: 12.4 : 19.4 mmHg Ao mean PG MV P1/2t: 47.6 msec Lat Peak E' Clay PA V2 max : 4.7 mmHg : 78.1 cm/sec E/E' lat: 11.9 PA mean PG E/e' average: 12.2 MV A dur: 0.13 sec PA Accel Time : 0.11 sec MV dec time MV P1/2t max clay Ao V2 mean PA V2 mean : 0.16 sec : 101.3 cm/sec : 57.1 cm/sec MVA(P1/2t): 4.6 cm2 Ao V2 VTI: 29.1 cm Electronically signed by: Saman Mcmullen on Reading Physician:02/12/2017 10:20 AM
--- NOTE | 2017-02-12 10:24 | NUR ---
Evaluation completed. Please go to "Notes" then click on "Assessments and Notes" (bottom left corner of screen). Then select appropriate discipline tab on top of screen.
--- NOTE | 2017-02-12 10:30 | DRSVH ---
PROCEDURE: X-RAY CHEST ONE VIEW, PORTABLE ([id number]) INDICATIONS: SHORT OF BREATH TECHNIQUE: One view of the chest was acquired. COMPARISON: [facility], CR, XR CHEST 1VW (PORTABLE), 02/11/2017, 22:20. FINDINGS: Surgical changes and devices: None. Lungs and pleura: Mild interstitial prominence suggesting mild pulmonary edema. Chronic elevation of the right hemidiaphragm. Mediastinum: Mediastinal contours appear normal. Heart size is normal. Bones and chest wall: No suspicious bony lesions. Overlying soft tissues appear unremarkable. IMPRESSION: Probable mild pulmonary edema. Dictated by: Bob Medina RRA Interpreted: Sae Fishman MD on 02/12/2017 at 10:29 Transcribed by: BRANDIE on 02/12/2017 at 10:30 Approved by: Sae Fishman M.D. on 02/12/2017 at 11:29
--- NOTE | 2017-02-12 11:06 | NUR ---
NUTRITION ASSESSMENT: ASSESS: Pt is a 56yo F admitted to CCU for sepsis, right lower leg cellulitis extending to groin and perineum, elevated troponin, hyperglycemia, azotemia. ST evaluated pt as she has a history of dysphagia and cleared her for a general texture. Wound consult pending. PMHX: Graves Disease, RA, dysphagia, AJ, DM, GERD, HTN LABS: Reviewed. Glu 236, Ca 7.9, ALT 45, Alb 2.5, A1C pending MEDS: Reviewed. Insulin, Lactated Ringers GI: 0 BM SKIN: necrotizing fasciitis in groin, wound consult pending CURRENT WTS:147.1kg, BMI 47.9kg/m2, IBW 65.9kg, adj bw: 86.2kg DIET: Diabetic, no PO yet EST. NEEDS: BMI, wounds Kcals:2155-2585kcal/day (25-30kcal/kg adj bw) Pro: 105-130g/day (1.2-1.5g/kg adj bw) NUTRITION DIAGNOSIS: 1.) Increased nutrient needs related to increased demand for healing as evidence by pt with rt lower leg cellulitis extending to groin NUTRITION INTERVENTION: 1.) Will monitor for PO intake/tolerance now that diet has been advanced per ST MONITOR / EVAL: PO, wt, wounds, labs, POC, nutrition status. Will continue to monitor per moderate nutrition risk guidelines
--- NOTE | 2017-02-12 11:42 | NUR ---
Patient comes from [facility] and is likely to return when ready, gave access and faxed facesheet. Updated RADIOLOGIST CHIEF OF BREAST IMAGING
[2017-02-12] MEDS: Budesonide 0.5 mg/2 mL Inhalation Solution NEB SCH ×2 (12:09→20:30)
--- NOTE | 2017-02-12 13:11 | CONS ---
[address] [address] CONSULTATION REPORT PATIENT: LUIS ANGEL IRENE : 1960 MR#: [id number] ADMIT: 02/12/2017 JOB ID: [id number] DATE OF SERVICE: 02/12/2017 REQUESTING PHYSICIAN: I thank Dr. Jena-Claude Machado for this timely consult. REASON FOR CONSULTATION: Septic shock secondary to cellulitis in a compromised host. HISTORY OF PRESENT ILLNESS: The patient is an unfortunate 56-year-old morbidly obese woman with longstanding diabetes, rheumatoid arthritis, and obstructive sleep apnea. She was admitted to the [facility] in [place] in March 2016 for necrotizing soft tissue infection involving her right groin, suprapubic area, and extending all the way into the right hip. This was treated with aggressive surgical debridement as well as prolonged antibiotics. We have reviewed these records, which are extensive, in great detail. Following the treatment of her necrotizing soft tissue infection, she was transferred to a local halfway facility where she has remained since that time. She has lost a considerable amount of weight with her BMI falling from the mid 60s down to the upper 40s, though she remains, of course, morbidly obese. She is able to get around with help and with a walker. She was in her usual state of compromised health until three or four days ago when she noticed a pimple or ingrown hair in her left suprapubic groin area. This soon seemed to transition to the right side as well, and she started to develop some erythema and tenderness in and around the right suprapubic area and extending down the right leg. This eventually involved her entire right leg and especially around the foot and ankle with confluent areas of cellulitis across most of the areas between her right foot, her right groin, and extending up onto her right hip. This was associated in addition with the soft tissue changes with fevers, chills, night sweats, a dry cough, palpitations, and generalized sensation of progressive weakness. There was no shortness of breath per se because she is largely sedentary, and no productive cough or chest pain. She had no significant nausea, vomiting, diarrhea, or dysuria. She was referred to this facility yesterday for evaluation and was found to be in shock requiring fluid resuscitation, as well as intravenous pressor agents to be initiated. Appropriate cultures were done in the emergency room, and the patient was started on vancomycin, meropenem, and clindamycin in accordance with our necrotizing soft tissue/shock protocol. Overnight in the ICU, the patient has remained relatively stable after a brief period of hypotension, and her norepinephrine has been steadily reduced over the last 12 hours to the point where it was just stopped here moments ago. She has maintained a reasonable urine output and has not required intubation, though she has had supplemental nasal oxygen during the night. This morning, the patient reports feeling a bit better. Fevers and chills improved. She states she has had some headache but no visual change. She denies any additional cough or shortness of breath. No GI or symptoms. The pain in her groin and right lower extremity are improved, and she now has a bit more painless range of motion of her right hip and right lower extremity. PAST MEDICAL HISTORY: 1. Morbid obesity. 2. Diabetes mellitus. 3. Rheumatoid arthritis requiring Plaquenil and very low-dose prednisone. 4. Obstructive sleep apnea. 5. Chronic thrombocytopenia. 6. Chronic pain syndrome. 7. Hypertension. 8. GERD. 9. Hypothyroidism. 10. History of necrotizing soft tissue infection march 2016 which sounds similar to a Dutch's type process. 11. History of zoster, right shoulder, with postherpetic neuralgia. 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 She has also traveled to [place] and [place] in the past. She has not traveled recently, of course, as she has been too sick. She is a nonsmoker, nondrinker, and lives in a long-term. FAMILY HISTORY: Negative for tuberculosis in any first-degree relatives. ALLERGIES: The patient has an allergy history of possibly a rash due to PENICILLIN in childhood but obviously tolerates meropenem, clindamycin, and vancomycin. REVIEW OF SYSTEMS: Review of systems was done in its entirety. The patient reports no mental status changes, mild headache. No visual change. No sore throat, but she does have dry mouth and occasional dysphagia. No stiff neck. She has a dry cough but no significant shortness of breath. She did have some palpitations initially but no substernal chest pain. No nausea, vomiting, diarrhea, or dysuria. She has not noticed swollen lymph nodes anywhere. The remainder of the review of systems is negative. PHYSICAL EXAMINATION: Reveals an awake, alert, pleasant, morbidly obese woman lying supine in her ICU bed. Her temperature was as high as 39.5 just after midnight but it is currently down to 37.1. Pulse is currently 95 and regular. Respiratory rate about 20 and regular with supplemental nasal oxygen in place. Her blood pressure was as low as 94/49 earlier in her admission. It is now 117/62. She is saturating okay on 3.5 L. Urine output has been good. Mental status is normal. She is alert and oriented. Head without trauma or temporal wasting, obviously. Eyes without conjunctival hyperemia or chemosis. Oral cavity dry with mucous membranes. No thrush or mass. Neck is morbidly obese and really cannot be evaluated, though she did flex it reasonably well when she was repositioning in bed. Lungs clear but distant. Cardiac tones: Regular rate and rhythm but distant. No murmurs appreciated. Abdomen massively obese, soft, nontender. No ingrid ascites or hepatosplenomegaly appreciated but difficult to exam due to weight. Her pannus appears free of panniculitis or infection. The patient's suprapubic area is diffusely erythematous but only minimally tender to palpation. This erythema extends onto the right anterior leg and all the way down to and involving the right foot and ankle. There is no blistering or bullae suggesting of necrotizing fasciitis. This erythematous macular rash also extends all the way up onto the right buttock. The patient has some fissured skin breakdown in the inguinal folds bilaterally. The patient does not have appreciable inguinal or cervical nodes, but these are very hard to palpate given her body habitus. The left lower extremity appears uninvolved. Peripheral pulses are intact in the lower extremities. Neurologically, the patient is intact. She moves all four extremities and does not seem to have any overt neuropathy. At no point in the exam is there any bullae, skin sloughing, or skin breakdown. LABORATORY STUDIES: Include white count 4700, platelet count 78,000. Creatinine is 0.86. LFTs normal except ALT 45. Bilirubin is 0.9. Albumin 3.5. Urinalysis 11-50 white cells. Streptozyme is pending. Multiple blood cultures pending, negative so far. Urine culture negative so far. MRSA screen negative. It is worth noting that last year at [facility], her MRSA screen was positive. IMAGING: Includes a chest x-ray done today which shows mild pulmonary edema but otherwise clear lungs. Her abdominal CT scan is interesting in that we see a nodular liver consistent with cirrhosis. In addition, there is a hypodense lesion in the central liver which is greater than 1 cm and probably needs evaluation later. She has a small amount of ascites present as well. IMPRESSION: This is an unfortunate 56-year-old woman with underlying morbid obesity, rheumatoid arthritis, and probably cirrhosis. The diagnosis of cirrhosis would seem to explain her chronic thrombocytopenia and would explain, of course, the CT appearance of a nodular liver with small amount of ascites. There is no evident reason for her cirrhosis, as she has no history of IV drug use or alcohol consumption, and I suspect if she does have cirrhosis, it is due to [id number] steatohepatitis. Based upon this chronically ill substrate, we now appear to have a severe right lower extremity and groin soft tissue infection which is likely streptococcal in origin and which is associated with septic shock and hypotension. The patient is already improving, however, with fluids, low-dose norepinephrine, and intravenous antibiotics, and the nurses were just able to stop the norepinephrine suggesting this will not be refractory septic shock episode. I agree with the initial antibiotics of vancomycin, meropenem, and clindamycin, as these are reasonable for necrotizing fasciitis and life-threatening soft tissue infections, but given her likelihood of developing a renal injury and the absence of methicillin-resistant Staphylococcus aureus in the nose, I think we can go ahead and stop the intravenous vancomycin. Even if we turn up with methicillin-resistant Staphylococcus aureus, which I think is very unlikely, it is quite likely that the clindamycin would actually be adequate coverage at this point. RECOMMENDATIONS: 1. Will drop the high-dose vancomycin. 2. Continue with clindamycin and meropenem. 3. We await the ASO titer, and blood cultures have been ordered. 4. Hep C and hepatitis B serologies will be ordered. 5. We have ordered a FibroSURE KWONG assay to try and establish definitively the diagnosis of cirrhosis in this patient. 6. Will continue to follow this complex case with you.
--- NOTE | 2017-02-12 14:20 | NUR ---
Hemodynamics.. Was able to wean norepinephrine throughout the am and came off the drip as of 1130. Continues to diurese lg amts urine. C/O her usual shoulder pain. Requesting [place]. updated and med ordered. Passed swallow eval and is taking diet without coughing or choking. Family here and udpated on status.
--- NOTE | 2017-02-12 15:06 | PCM.PNMED ---
Subjective Date of Service Feb 12, 2017 Subjective 56-year-old woman with class III obesity and type II diabetes mellitus presents with recurrent lower extremity cellulitis with sepsis. She is alert. She endorses lower extremity pain primarily right leg and left groin. Verner feverish and chilled yesterday but not currently. No significant nausea or anorexia. No dyspnea or chest pain. Exam Vital Signs Vital Sign - Last Date Time Temp Pulse Resp B/P Pulse Ox O2 Delivery O2 Flow Rate FiO2 02/12/17 12:03 86 18 96 Nasal Cannula 3.00 02/12/17 12:00 36.5 104/62 Intake and Output 02/11/17 02/11/17 02/12/17 Cumulative From/Thru 15:00 23:00 07:00 02/11/17 21:07 - 02/12/17 06:43 Intake Total 2000 ml 4400 ml 6400 ml Output Total 725 ml 725 ml Balance 2000 ml 3675 ml 5675 ml Intake IV Total 2000 ml 4400 ml 6400 ml Output Urine Total 725 ml 725 ml # Bowel Movements 0 0 Exam General: Obese woman, affect subdued but no acute distress HEENT: sclerae anicteric, oral mucosa moist Neck: Unable to assess JVD Chest: Generally clear to auscultation Cardiac: S1S2, regular, no murmur appreciated Abdomen: BS present, non-tender Extremities: Right leg with patchy erythema anteriorly on thigh to tibia, macular, no vesicles or exudate. Patchy erythema left groin and left upper thigh. No apparent sacral decubiti. Perfusion of toes normal bilaterally no palpable induration or fluctuance. Neuro: A&O, cranial nerves symmetric, motor strength and coordination normal IVs and Medications Medications Reviewed: Medications were reviewed in detail Lab and Diagnostics Serial troponins: 0.127, 0.156, 0.132, 0.069 Procalcitonin 1.11 Hepatobiliary labs: ALT 58, alkaline phosphatase 187, total bilirubin 1.2, albumin 3.3, INR 1.06. Arterial blood gas: DateTimeAnalyzed 21:39:00 -_ pH ____7.466 - 7.350 7.450 pCO2 ___37.0__ -mmHg 35.0 45.0 pO2 ___52.8__ -mmHg 69.0 116 HCO3- ___26.3__ -mmol/L 22.0 26.0 FIO2 ___21.0__ -% DateTimeAnalyzed 04:19:00 -_ pH ____7.332 - 7.350 7.450 pCO2 ___49.9__ -mmHg 35.0 45.0 pO2 ___88.4__ -mmHg 69.0 116 HCO3- ___25.7__ -mmol/L 22.0 26.0 FIO2 ___28.0__ -% Result Diagram: 02/12/17 0418 02/12/17 1225 X-Rays, CTs and MRIs Chest Xray Interpretation: Rotated, poor inspiration. Density in the Left lower lobe, probably due to vessel crowding. No indication of pneumonia. View: Portable, 1 view Interpretation / Wet Read by: Wet read ED physician CT Abd / Pelvis Interpretation CONCLUSION: Limited study as described. No acute findings. Cirrhotic changes. Hepatosplenomegaly. Other findings as noted above. Electronically signed by Michael Benitez MD Study type: Abdominal CT IV contrast Interpretation / Wet Read by: Interpret - Radiologist 12-lead ECG 02/12/17 04:50 - sinus tachycardia 105, normal conduction intervals, QTC 466, no acute ST or T-wave changes. Cardiac Echo Impressions Echocardiogram Report Name: LUIS ANGEL IRENE Study Date: 02/12/2017 Interpretation Summary The left ventricle is mildly dilated. The ejection fraction is estimated to be 50-55%. There is apical inferior wall hypokinesis. The E/A ratio is reversed with an elevated E/E', suggesting impaired early relaxation of the left ventricle with possible increased filling pressures. Consider JACQUELIN if clinically indicated. There is no significant valvular heart disease. . Additional Diagnostics ABG DateTimeAnalyzed 21:39:00 -_ pH ____7.466 - 7.350 7.450 pCO2 ___37.0__ -mmHg 35.0 45.0 pO2 ___52.8__ -mmHg 69.0 116 HCO3- ___26.3__ -mmol/L 22.0 26.0 Assessment & Plan Patient is a 56 y.o. F with past medical history of necrotizing fasciitis in the right groin area, status post lengthy hospitalization at [facility] in March and April, during which time she underwent extensive surgical debridement, ultimately with discharge to [facility] for ongoing care, morbid obesity, has uncontrolled type II diabetes, and RA. Patient is admitted for treatment of sepsis, right lower leg cellulitis extending to groin and perineum, elevated troponin, hyperglycemia, azotemia. Acute and/or high risk problems: #. Severe septic shock, acute. - Patient on admission to ED tachycardic 120, respirations 32, febrile 39.5 C, hypertensive, procal 1.11, WCT 3.9 with left shift, ESR 69. Focal sources cellulitis. Organ dysfunction including lactic acid 4.0, mean arterial pressure 61 after 3 L resuscitation, now requiring pressors. - Aggressive IV fluids, lactated Ringer's 100 mL per hour; urine output greater than 0.5 mL/KG/hour - IV norepinephrine, taper as tolerated, mean arterial pressure greater than 65 mmHg - Discontinue hydrocortisone, switched to oral prednisone at 2x usual dose when off of pressors #. Right leg Cellulitis. Present on admission. US showed no crepitus, gas bubbles in tissue, exam limited by patient's body habitus. - Wound care consulted - Infectious disease consult for antibiotic management - Currently on meropenem, clindamycin #. Troponin elevation, acute. No chest pain at admission, EKG unremarkable, echocardiogram suggests mild right heart dysfunction. Troponin elevation is likely demand ischemia are considered to sepsis. - Discontinue heparin drip - Monitor for signs of active CAD - No specific antianginal therapy at this time #. Hyperglycemia; type II diabetes mellitus, acute on chronic hyperglycemia. - 4 times a day capillary blood glucose - Glucose control goals: Random less than 180, fasting less than 140, none less than 70 - Insulin as needed, divided 50-50 long-acting and nutritional/correctional #. Hypomagnesemia, acute. Initially 1.4, then 1.7. - 2g magnesium sulfate IV, given slowly - Repeat Magnesium level in AM #. Transaminitis, acute. - Elv AST 51, ALT 58, Alk phos 187 on admission - Hepatitis viral panel pending - Likely due to sepsis and dehydration - Follow CMP periodically #Rheumatoid Arthritis - On chronic prednisone 10 mg per day and Plaquenil - Patient given stress dose of steroid in ED - Stress dose hydrocortisone per ICU service - Reduce to prednisone 20 mg per day when hemodynamically stable # Hypertension - Hold home meds until BP improves #Morbid Obesity class III -Appropriate bariatric nursing interventions Resolving, stable and or Chronic problems: # Hx of HFpEF -ejection fraction is estimated to be 55-60%. -Repeat echo # Hx Graves Disease; presumed treated now on thyroxine replacement. -Continue home levothyroxine dose # History of respiratory failure - Continue to monitor #obstructive sleep apnea - CPAP PRN HS ordered #Asthma -Duoneb Q6 PRN #GERD -Continue usual medication GI Prophylaxis: H2 aric VTE Prophylaxis: Sub-Q Heparin (Unfractionated) VTE Mechanical Devices: Intermittant Pneumatic CD Resuscitation Status: CPR: Attempt Resuscitation Time spent 45 minutes Jean-Claude Machado MD Feb 12, 2017 15:06 Resuscitation Status: CPR: Attempt Resuscitation Jean-Claude Machado MD Feb 12, 2017 15:06
[2017-02-12] MEDS: oxyCODONE-Acetamin 5-325 mg Tablet PO PRN ×2 (15:17→20:22)
--- NOTE | 2017-02-12 16:11 | NUR ---
Wound Care Pressure ulcer protocol received, pt seen at bedside. 56 yo female admitted with sepsis from SNF, cellulitis at right leg and perineum. No pressure related skin issues noted, no wound issues noted at this time either.
[2017-02-12] MEDS ORDERED: Insulin Human NPH 100 Unit/mL Syringe SUBQ SCH (18:55)
[2017-02-12] MEDS ORDERED: Insulin GLARgine 100 Unit/mL Syringe SUBQ SCH ×3 (21:00)
[2017-02-12] MEDS ORDERED: Vancomycin Serum Trough XX ONE (23:30)
[2017-02-13] VITALS (8 sets, daily range): BP systolic 118–150; BP diastolic 59–85; PULSE 79–102; RESP 14–22; O2SAT 93–97
[2017-02-13] MEDS: Clindamycin Inj 900 MG in IV Premix 1 EACH IV SCH ×3 (00:22→17:11)
[2017-02-13] MEDS: Meropenem Inj 2,000 MG in 0.9% Sodium Chloride 100 ML IV SCH ×2 (01:36→08:40)
[2017-02-13 04:31] LABS: BASOPHILS % (AUTO) 0.2 % (0-3); EOSINOPHILS % (AUTO) 0.2 % (0-5); MONOCYTES % (AUTO) 8.4 % (4-12); Mean Corpuscular Hemoglobin 30.6 pg (27.0-35.0); Mean Corpuscular Volume 93.5 fL (81-100); NEUTROPHILS % (AUTO) 78.1 % (40-74); Platelet Count 67 bil/L (150-400)
[2017-02-13] MEDS: Lactated Ringer's 1,000 ML IV SCH ×2 (04:40→19:14)
[2017-02-13 04:43] LABS: INR 1.1 ratio
[2017-02-13 05:06] LABS: Phosphorus 2.9 mg/dL (2.5-4.9)
[2017-02-13] MEDS: Budesonide 0.5 mg/2 mL Inhalation Solution NEB SCH ×2 (08:30→20:30)
[2017-02-13] MEDS: Insulin LISPRO 300 Unit/3 mL Inj SUBQ SCH ×4 (08:39→21:56)
[2017-02-13] MEDS: predniSONE 20 mg Tablet PO SCH (08:40)
[2017-02-13] MEDS: Hydroxychloroqine 200 mg Tablet PO SCH (08:40)
[2017-02-13] MEDS: Nystatin 100,000 Unit/Gm 15 Gm Powder TOPICAL SCH ×2 (08:41→20:30)
[2017-02-13] MEDS: oxyCODONE-Acetamin 5-325 mg Tablet PO PRN ×3 (08:44→21:47)
--- NOTE | 2017-02-13 09:57 | PROG NOTE ---
[address] [address] PROGRESS NOTE PATIENT: LUIS ANGEL IRENE : 1960 MR#: [id number] ADMIT: 02/12/2017 JOB ID: [id number] DATE: 02/13/2017 REASON FOR FOLLOWUP: Severe group A Streptococcal infection, right lower extremity, in a morbidly obese woman. INTERVAL HISTORY: The patient reports no fever or chills overnight. She notes some dry mucous membranes, but no sore throat per se. No significant cough or shortness of breath. She has bilateral very severe shoulder pain, left greater than right, which is chronic, which she attributes to recent frozen shoulders as well as fibromyalgia. No nausea or vomiting. She is sitting up 45 degrees and having breakfast without much difficulty this morning. The patient's right lower extremity continues to be painful and red, though perhaps slightly better. PHYSICAL EXAMINATION: Reveals an afebrile woman who has been afebrile since the rn plasma center hours yesterday. She is currently 36.8. Pulse 100, respiratory rate 22, blood pressure 125/70, saturating well on 2 L. Mental status is clear. Oral cavity with dry mucous membranes. Otherwise negative. Lungs fairly clear bilaterally though distant. Cardiac tones distant but regular rate and rhythm. Abdomen is soft, nontender. Pannus seems uninvolved. There is some suprapubic erythema which extends onto the right hip area and then all the way down the right leg. There is very obvious cellulitis with warm, inflamed, tender skin all the way down to the foot. There is no bullae or skin breakdown, however. LABORATORIES: Include white count 4400, platelet count 67,000. Creatinine 0.72. LFTs normal except for ALT 40, albumin 2.6. Procalcitonin 5.75, which is up from 1.1 yesterday. Urinalysis has 11-50 white cells. Hep B and C negative. Cirrhosis studies are pending. Streptozyme came back at 7:34, grossly elevated. MRSA screen negative. Blood cultures negative. Urine cultures negative. IMAGING: From yesterday includes a chest x-ray that shows what appears to be mild bilateral pulmonary edema. IMPRESSION: This is an unfortunate and debilitated woman with morbid obesity, diabetes, obstructive sleep apnea, and history of necrotizing soft tissue infection last Spring, now presents with a severe cellulitis involving the right lower extremity. Another finding here is that it appears she has cirrhosis based on CT scan and her chronic thrombocytopenia. Based on our ASO titer, I believe this is a group A Streptococcal cellulitis, and certainly has the classic appearance for that. I do not see evidence at this time of necrotizing soft tissue infection. Recall that yesterday we stopped the vancomycin and today I think we can further narrow our antibiotics and aim them at group A Strep causing a very severe soft tissue infection in the right lower extremity. RECOMMENDATIONS: 1. Will drop the meropenem and replace it with ceftriaxone. 2. Will continue with the clindamycin for another day or so, but probably drop in the near future out of concerns of causing C. diff, though it is valuable in terms of treating a severe group A Strep infection such as this. 3. We await the FibroSURE KWONG assay to try nail down the diagnosis of cirrhosis due to KWONG in this unfortunate patient. 4. Will continue to closely follow this patient with you.
[2017-02-13] MEDS: cefTRIAXone Inj 2,000 MG in Dextrose 5% Minibag Plus 50 ML IV SCH (12:03)
--- NOTE | 2017-02-13 13:53 | NUR ---
spiritual care:pt request conversational visit. pt described medical issue and expected resolution. She also reflected on recent exp of grief. supportive listening and prayer. pt open for visit from caring soil science teacher later in day.
--- NOTE | 2017-02-13 15:34 | PCM.PNMED ---
Subjective Date of Service Feb 13, 2017 Subjective 56-year-old woman with class III obesity and type II diabetes mellitus presents with recurrent lower extremity cellulitis with sepsis. She is alert. Lower extremity pain is improved in right leg and left groin. No fevers or chills. No significant nausea or anorexia. No dyspnea or chest pain. Appetite normal Exam Vital Signs Vital Sign - Last Date Time Temp Pulse Resp B/P Pulse Ox O2 Delivery O2 Flow Rate FiO2 02/13/17 15:17 36.8 93 20 118/59 97 Nasal Cannula 2.00 Intake and Output 02/12/17 02/12/17 02/13/17 Cumulative From/Thru 15:00 23:00 07:00 02/11/17 21:07 - 02/13/17 06:59 Intake Total 2921 ml 1938 ml 02634 ml Output Total 2975 ml 1400 ml 5100 ml Balance -54 ml 538 ml 6159 ml Intake Oral 450 ml 676 ml 1126 ml IV Total 2471 ml 1262 ml 26538 ml Output Urine Total 2975 ml 1400 ml 5100 ml # Bowel Movements 0 Exam General: Obese woman, alert and communicative HEENT: sclerae anicteric, oral mucosa moist Neck: Unable to assess JVD Chest: Generally clear to auscultation Cardiac: S1S2, regular, no murmur appreciated Abdomen: BS present, non-tender Extremities: Right leg with confluent erythema anteriorly on thigh to tibia, macular, no vesicles or exudate. Patchy erythema left groin and left upper thigh. Neuro: A&O, cranial nerves symmetric, motor strength and coordination moraima IVs and Medications Medications Reviewed: Medications were reviewed in detail Lab and Diagnostics Result Diagram: 02/13/174 02/13/17 0404 X-Rays, CTs and MRIs Chest Xray Interpretation: Rotated, poor inspiration. Density in the Left lower lobe, probably due to vessel crowding. No indication of pneumonia. View: Portable, 1 view Interpretation / Wet Read by: Wet read ED physician CT Abd / Pelvis Interpretation CONCLUSION: Limited study as described. No acute findings. Cirrhotic changes. Hepatosplenomegaly. Other findings as noted above. Electronically signed by Michael Benitez MD Study type: Abdominal CT IV contrast Interpretation / Wet Read by: Interpret - Radiologist 12-lead ECG 02/12/17 04:50 - sinus tachycardia 105, normal conduction intervals, QTC 466, no acute ST or T-wave changes. Cardiac Echo Impressions Echocardiogram Report Name: LUIS ANGEL IRENE Study Date: 02/12/2017 Interpretation Summary The left ventricle is mildly dilated. The ejection fraction is estimated to be 50-55%. There is apical inferior wall hypokinesis. The E/A ratio is reversed with an elevated E/E', suggesting impaired early relaxation of the left ventricle with possible increased filling pressures. Consider JACQUELIN if clinically indicated. There is no significant valvular heart disease. . Additional Diagnostics ABG DateTimeAnalyzed 21:39:00 -_ pH ____7.466 - 7.350 7.450 pCO2 ___37.0__ -mmHg 35.0 45.0 pO2 ___52.8__ -mmHg 69.0 116 HCO3- ___26.3__ -mmol/L 22.0 26.0 Assessment & Plan Patient is a 56 y.o. F with past medical history of necrotizing fasciitis in the right groin area, status post lengthy hospitalization at [facility] in March and April, during which time she underwent extensive surgical debridement, ultimately with discharge to [facility] for ongoing care, morbid obesity, has uncontrolled type II diabetes, and RA. Patient is admitted for treatment of sepsis, right lower leg cellulitis extending to groin and perineum, elevated troponin, hyperglycemia, azotemia. Acute and/or high risk problems: #. Severe septic shock, acute. - Patient on admission to ED tachycardic 120, respirations 32, febrile 39.5 C, hypertensive, procal 1.11, WCT 3.9 with left shift, ESR 69. Focal sources cellulitis. Organ dysfunction including lactic acid 4.0, mean arterial pressure 61 after 3 L resuscitation. She required IV norepinephrine. Initially treated with stress dose steroids. Subsequently has maintained normal blood pressure with good oral intake. Discontinued norepinephrine - Discontinue IV fluids, encourage oral intake - Discontinued hydrocortisone, switched to oral prednisone at 2x usual dose #. Right leg Cellulitis. Present on admission. US showed no crepitus, gas bubbles in tissue, exam limited by patient's body habitus. - Wound care consulted - Infectious disease consult for antibiotic management - Currently on ceftriaxone, clindamycin - Physical therapy and mobilized patient #. Hyperglycemia; type II diabetes mellitus, acute on chronic hyperglycemia. Blood glucose in poor control greater than 300. - 4 times a day capillary blood glucose - Glucose control goals: Random less than 180, fasting less than 140, none less than 70 - Increase Insulin as needed, divided 50-50 long-acting and nutritional/ correctional #. Hypomagnesemia, acute. Initially 1.4, supplemented then 2.0. - 2g magnesium sulfate IV, given slowly - Repeat Magnesium level in AM #. Transaminitis, acute. - Elv AST 51, ALT 58, Alk phos 187 on admission - Hepatitis viral panel pending - Likely due to sepsis and dehydration - Follow CMP periodically Resolving, stable and chronic problems: #. Troponin elevation, acute. No chest pain at admission, EKG unremarkable, echocardiogram suggests mild right heart dysfunction. Troponin elevation is likely demand ischemia are considered to sepsis. Discontinued heparin drip. - Monitor for signs of active CAD - No specific antianginal therapy at this time #Rheumatoid Arthritis - Previously On chronic prednisone 10 mg per day and Plaquenil - Patient given stress dose of steroid in ED - Stress dose hydrocortisone per ICU service - Reduce to baseline prednisone discharge # Hypertension - Hold home meds until BP improves #Morbid Obesity class III -Appropriate bariatric nursing interventions # Hx of HFpEF -ejection fraction is estimated to be 55-60%. -Repeat echo # Hx Graves Disease; presumed treated now on thyroxine replacement. -Continue home levothyroxine dose # History of respiratory failure - Continue to monitor #obstructive sleep apnea - CPAP PRN HS ordered #Asthma -Duoneb Q6 PRN #GERD -Continue usual medication GI Prophylaxis: H2 aric VTE Prophylaxis: Sub-Q Heparin (Unfractionated) VTE Mechanical Devices: Intermittant Pneumatic CD Resuscitation Status: CPR: Attempt Resuscitation Time spent 35 minutes Jean-Claude Machado MD Feb 13, 2017 15:33
--- NOTE | 2017-02-13 15:50 | NUR ---
Transfer Pt transferred down from [facility]. 3 PIVs in Right arm patent and flush. One in use. Em patent and draining to gravity fannie urine. A&OX4. Denies CP, SOB. Pain 4/10 in shoulders and leg/ankle and perineum. Sho bed ordered on pt request and weight. Redness, pain and swelling in right upper and lower leg, right michael area, and panis. SBA - 1 assist to bathroom. Care continues Addendum: 02/13/17 at 1724 by REGIS SILVA RN RA 94-96% Addendum: 02/13/17 at 1725 by REGIS SILVA RN Buttock redness with small area appearing ulcerative. Per pt present on admission.
--- NOTE | 2017-02-13 18:12 | NUR ---
spiritual care: caring electronic data interchange specialist pt rec visit from electronic data interchange specialist Niki. She reports pleasant conversation and that pt visited for about 20 minutes before expressing pain.
[2017-02-13] MEDS: Insulin GLARgine 100 Unit/mL Syringe SUBQ SCH (21:55)
[2017-02-14] MEDS: Clindamycin Inj 900 MG in IV Premix 1 EACH IV SCH ×3 (00:52→16:21)
--- NOTE | 2017-02-14 03:27 | NUR ---
Activity/Pain Pt in bed all shift, refuses to reposition, lying supine at 30 degrees. Refused offer of pillows for bridging. Legs elevated with pillows and pillows next to arms. Pt has c/o px: shoulder, back, and groin. Rec'd prn percocet as ordered and routine lyrica. Pt has candidias in pannus, groin and under breasts. Noted small OA in pannus area. nystatin powder applied. Pt has Hx of pressure ulcers- noted on earlier assessment that there is a red non blanchable area that is old scar tissue from prior ulcer that is reddened around edges, mepilex applied for protection.
[2017-02-14] MEDS: oxyCODONE-Acetamin 5-325 mg Tablet PO PRN ×4 (04:33→20:28)
[2017-02-14 05:09] VITALS: BP 116/73; PULSE 89; RESP 20; O2SAT 98
[2017-02-14] MEDS: Insulin LISPRO 300 Unit/3 mL Inj SUBQ SCH ×4 (07:33→21:58)
[2017-02-14] MEDS: Lactated Ringer's 1,000 ML IV SCH ×2 (07:40→19:41)
[2017-02-14 08:26] VITALS: PULSE 89; RESP 16; O2SAT 98
[2017-02-14] MEDS: Budesonide 0.5 mg/2 mL Inhalation Solution NEB SCH ×2 (08:26→20:01)
[2017-02-14] MEDS: predniSONE 20 mg Tablet PO SCH (09:30)
[2017-02-14] MEDS: Hydroxychloroqine 200 mg Tablet PO SCH (09:30)
[2017-02-14] MEDS: cefTRIAXone Inj 2,000 MG in Dextrose 5% Minibag Plus 50 ML IV SCH (09:30)
[2017-02-14] MEDS: Nystatin 100,000 Unit/Gm 15 Gm Powder TOPICAL SCH ×2 (09:33→20:31)
--- NOTE | 2017-02-14 11:38 | PCM.PNMED ---
Subjective Date of Service Feb 14, 2017 Subjective Patient hoping she can get her Lyrica on the schedule she gets it at SNF. She usually gets it at 7:30 in the morning and 4:30 in the afternoon, Rx rewritten accordingly. Other than that she states her pain is okay, she is feeling better , denies chest pain, dyspnea, nausea or vomiting. She reports that her right lower extremity is much less red than it was previously. Exam Vital Signs Vital Sign - Last Date Time Temp Pulse Resp B/P Pulse Ox O2 Delivery O2 Flow Rate FiO2 02/14/17 08:26 89 16 98 Nasal Cannula 3.00 02/14/17 05:09 36.4 116/73 Intake and Output 02/13/17 02/13/17 02/14/17 Cumulative From/Thru 15:00 23:00 07:00 02/11/17 21:07 - 02/14/17 05:09 Intake Total 600 ml 850 ml 81477 ml Output Total 1800 ml 1400 ml 8300 ml Balance -1200 ml -550 ml 4409 ml Intake Oral 600 ml 850 ml 2576 ml IV Total 51112 ml Output Urine Total 1800 ml 1400 ml 8300 ml # Bowel Movements 1 1 Exam Gen.- A+ O 3 no apparent distress. Morbidly obese female lying in bed Eyes- open conjunctiva clear, pupils equal nonicteric ENT- ears normal, nose normal Neck- supple/trach midline CVS- RRR no murmur or gallop Lungs- CTA GI- NABS/NT soft, generous pannus Musc- moving 4 no obvious deformity Neuro- cranial nerves II through XII intact to gross examination, nonfocal Skin- warm and moist, there is an area of erythema in the suprapubic area under a skin fold, and her right lower extremity is erythematous from the ankle to the mid calf Psych- pleasant and appropriate, Lab and Diagnostics Result Diagram: 02/13/174 02/13/17 040 X-Rays, CTs and MRIs Chest Xray Interpretation: Rotated, poor inspiration. Density in the Left lower lobe, probably due to vessel crowding. No indication of pneumonia. View: Portable, 1 view Interpretation / Wet Read by: Wet read ED physician CT Abd / Pelvis Interpretation CONCLUSION: Limited study as described. No acute findings. Cirrhotic changes. Hepatosplenomegaly. Other findings as noted above. Electronically signed by Michael Benitez MD Study type: Abdominal CT IV contrast Interpretation / Wet Read by: Interpret - Radiologist 12-lead ECG 02/12/17 04:50 - sinus tachycardia 105, normal conduction intervals, QTC 466, no acute ST or T-wave changes. Cardiac Echo Impressions Echocardiogram Report Name: LUIS ANGEL IRENE Study Date: 02/12/2017 Interpretation Summary The left ventricle is mildly dilated. The ejection fraction is estimated to be 50-55%. There is apical inferior wall hypokinesis. The E/A ratio is reversed with an elevated E/E', suggesting impaired early relaxation of the left ventricle with possible increased filling pressures. Consider JACQUELIN if clinically indicated. There is no significant valvular heart disease. . Additional Diagnostics ABG DateTimeAnalyzed 21:39:00 -_ pH ____7.466 - 7.350 7.450 pCO2 ___37.0__ -mmHg 35.0 45.0 pO2 ___52.8__ -mmHg 69.0 116 HCO3- ___26.3__ -mmol/L 22.0 26.0 Assessment & Plan Patient is a 56 y.o. F with past medical history of necrotizing fasciitis in the right groin area, status post lengthy hospitalization at [facility] in March and April, during which time she underwent extensive surgical debridement, ultimately with discharge to [facility] for ongoing care, morbid obesity, has uncontrolled type II diabetes, and RA. Patient is admitted for treatment of sepsis, right lower leg cellulitis extending to groin and perineum, elevated troponin, hyperglycemia, azotemia. 02/14 meeting, medically complex patient for the first time. She has been weaned off of pressors, shock has been resolved, treating cellulitis as per ID recommendations, adjusting insulin for better control. #. Right leg Cellulitis. Present on admission. US showed no crepitus, gas bubbles in tissue, exam limited by patient's body habitus. - Wound care consulted - Infectious disease consult for antibiotic management - Currently on ceftriaxone, clindamycin #. Hyperglycemia; type II diabetes mellitus uncontrolled, acute on chronic hyperglycemia. BS and 68-380/24 hours -50 units Lantus 02/04 9 PM, adding lisinopril 15U prandial to high-dose sliding scale 02/14 #. Transaminitis, acute.-" Shock liver"on Segura and possible impending cirrhosis - Elv AST 51, ALT 58, Alk phos 187 on admission - Hepatitis viral panel -02/14 #. Severe septic shock, acute. - She required IV norepinephrine. stress dose steroids. -Resolved 02/14 - Discontinue IV fluids, encourage oral intake - Discontinued hydrocortisone, switched to oral prednisone at 2x usual dose #. Troponin elevation, acute. EKG unremarkable, echo mild R heart dysfcn. demand ischemia . Resolved 02/14 -If patient has not had risk stratification recently, this should be done when acute event his past does not necessarily need to be done as inpatient.02/14 #Rheumatoid Arthritis - Previously On chronic prednisone 10 mg per day and Plaquenil - Patient given stress dose of steroid in ED - Stress dose hydrocortisone per ICU service - On double dose 02/14 , reduce to baseline prednisone discharge #Morbid Obesity class III -Appropriate bariatric nursing interventions # Hx of HFpEF -ejection fraction is estimated to be 55-60%. # Hx Graves Disease; presumed treated now on thyroxine replacement. -Continue home levothyroxine dose #obstructive sleep apnea#Asthma - CPAP PRN HS ordered -Duoneb Q6 PRN #GERD -Continue usual medication GI Prophylaxis: H2 aric VTE Prophylaxis: Sub-Q Heparin (Unfractionated) VTE Mechanical Devices: Intermittant Pneumatic CD Resuscitation Status: CPR: Attempt Resuscitation Iam Gusman MD Feb 14, 2017 11:38 -Duoneb Q6 PRN #GERD -Continue usual medication GI Prophylaxis: H2 aric VTE Prophylaxis: Sub-Q Heparin (Unfractionated) VTE Mechanical Devices: Intermittant Pneumatic CD Resuscitation Status: CPR: Attempt Resuscitation Iam Gusman MD Feb 14, 2017 11:38
--- NOTE | 2017-02-14 12:39 | PROG NOTE ---
[address] [address] PROGRESS NOTE PATIENT: LUIS ANGEL IRENE : 1960 MR#: [id number] ADMIT: 02/12/2017 JOB ID: [id number] DATE: 02/14/2017 REASON FOR FOLLOWUP: Severe group A streptococcal cellulitis in a morbidly obese, debilitated woman. INTERVAL HISTORY: The patient reports that her right lower extremity and groin cellulitis seemed to be improving yesterday, but she seems to have failed to progress in the last 24 hours. She is still having considerable pain, warmth, and tenderness along her entire right leg, but most significantly around the foot and ankle. She denies fevers, chills, or sweats. No significant cough, shortness of breath, chest pain, nausea, or vomiting. PHYSICAL EXAMINATION: Reveals a morbidly obese woman with a BMI of 50 lying supine in her hospital bed. She is afebrile and has been for 48 hours. Current temp 36.4, pulse 89, respiratory rate 16, blood pressure 116/73, saturating well on 3 L. Mental status is clear. Oral cavity benign. Lungs distant but clear. Cardiac tones distant but regular rate and rhythm without murmur. Abdomen very obese without panniculitis. The right suprapubic area as well as the right thigh have evidence of mild to moderate cellulitis. The right lower extremity below the knee is much more significant, and as one goes distally down to the ankle, there is quite a bit of cellulitis at this time. LABORATORIES: Include a white count of 4400, platelet count 67,000. Creatinine 0.72. LFTs basically normal, though her ALT is 40. Albumin 2.6, procalcitonin 5.75 yesterday, not yet repeated. Serology is notable for the very high streptozyme 734. The blood cultures are negative. MRSA screen negative. IMPRESSION: This is a complex patient who obviously has a variety of comorbidities, including morbid obesity and diabetes and sleep apnea. She had a necrotizing soft tissue infection of the groin last year treated at [place] and now presents with quite a severe group A streptococcal cellulitis and possible newly discovered cirrhosis. She is responding slowly so far to antibiotics which is typical of serious group A strep infections which typically take 3-6 days to really improve. RECOMMENDATIONS: 1. Will continue with ceftriaxone and clindamycin. 2. Will stop the clindamycin as soon as we see a turnaround in her condition, as long courses of clindamycin are, of course, not entirely safe. 3. We await the FibroSURE KWONG assay to try and establish whether or not she has a cirrhosis due to KWONG. 4. Will continue to follow this patient with you.
--- NOTE | 2017-02-14 13:01 | NUR ---
Social Work-initial assessment: Data:See initial assessment. Pt is a 56 y/o female who was admitted on 02/12/17 for Sepsis leg and Perineal Cellulitis per H&P. Pt's insurance is [employer] and PCP is Fiorella Courtney. EMR Reviewed. Pt's readmission score is 5-high risk. SW met with pt at bedside to discuss discharge planning, SW role explained and initial assessment complete. Pt is alert and oriented x3. Pt is currently a resident at [facility]. The staff at [facility] assist patient with medication and prepares meals. Pt reports that she ambulates independently and does not drive. Pt has no HH history. Pt has not completed DPOA/ advanced directive and is interested in information. Pt has no longterm care or VA benefits. SW discussed rodent exterminator care planning and currently patient plans to return to [facility]. [facility] to provide transport home at discharge if patient is accepted back. [facility] was given acces to patient's chart by UR specialist. SW provided phone number and plan on white board in room. SW will continue to follow. Plan:Pt to likely discharge SNF. SW will continue to follow. Ivana Delatorre LMSW, LUIGI Addendum: 02/14/17 at 1322 by IVANA DELATORRE Amended: Links added.
--- NOTE | 2017-02-14 15:18 | NUR ---
SAÚL SAÚL signed
--- NOTE | 2017-02-14 15:29 | NUR ---
spiritual care: follow up conversational visit. pt reported on new shoulder pain perhaps from repositioning. She used images such as "hot knife" "repeated stabbing" to describe it--different from other orthopedic pain she manages regularly. Pt using ice pack now with some relief as well as keeping her arm still. Pt described medical report and plan. Pt rec. bedside table card. Prayer.
[2017-02-14 15:42] VITALS: BP 156/81; PULSE 90; RESP 20; O2SAT 97
[2017-02-14 20:01] VITALS: PULSE 73; RESP 16; O2SAT 93
[2017-02-14] MEDS: Insulin GLARgine 100 Unit/mL Syringe SUBQ SCH (20:30)
[2017-02-14 21:07] VITALS: BP 154/84; PULSE 83; RESP 20; O2SAT 97
[2017-02-15] MEDS: Clindamycin Inj 900 MG in IV Premix 1 EACH IV SCH ×3 (00:31→17:34)
--- NOTE | 2017-02-15 03:48 | NUR ---
Pain/ Skin Pt. reported increased pain from prior shingles area. Pt. rated pain 6/10. 1 Percocet PO given for pain. Nystatin powder placed underneath folds. Pillow cases placed underneath breasts which is more red than folds underneath pannus area. Will continue to monitor. Addendum: 02/15/17 at 0510 by CIRO BURNETT RN Pt. declining turns at this time due to pain.
[2017-02-15] MEDS: oxyCODONE-Acetamin 5-325 mg Tablet PO PRN ×3 (03:59→17:36)
[2017-02-15 04:24] VITALS: BP 146/80; PULSE 74; RESP 20; O2SAT 99
[2017-02-15] MEDS: Lactated Ringer's 1,000 ML IV SCH ×3 (05:24→21:14)
[2017-02-15] MEDS: Insulin LISPRO 300 Unit/3 mL Inj SUBQ SCH ×4 (08:00→21:38)
[2017-02-15] MEDS: Budesonide 0.5 mg/2 mL Inhalation Solution NEB SCH ×2 (08:17→23:11)
[2017-02-15 08:19] VITALS: PULSE 77; RESP 16; O2SAT 94
--- NOTE | 2017-02-15 08:50 | NUR ---
NUTRITION FOLLOW-UP: ASSESS: Pt is a 56yo F admitted to CCU for sepsis, right lower leg cellulitis and hyperglycemia. ST evaluated pt as she has a history of dysphagia and cleared her for a general texture. PO on Diabetic diet has been good at 100% of most meals. ID is following for cellulitis which is very slowly improving. PMHX: Graves Disease, RA, dysphagia, AJ, DM, GERD, HTN LABS: Reviewed. Glu 380, ALT 40, Alb 2.6 MEDS: Reviewed. Insulin, prednisone GI: BMx1 02/14 SKIN: Right leg Cellulitis--some improvement. No PU per WC CURRENT WTS:152kg, BMI 49.5kg/m2, IBW 65.9kg, adj bw: 86.2kg. Admit wt 147.1kg DIET: Diabetic, PO 100% EST. NEEDS: BMI, healing Kcals:2155-2585kcal/day (25-30kcal/kg adj bw) Pro: 105-130g/day (1.2-1.5g/kg adj bw) NUTRITION DIAGNOSIS: 1.) Increased nutrient needs related to increased demand for healing as evidence by pt with rt lower leg cellulitis extending to groin--SLIGHT IMPROVEMENT NUTRITION INTERVENTION: 1.) Continue current diet. PO is adequate for needs 2.) DM diet education provided 02/13 MONITOR / EVAL: PO, wt, wounds, labs, POC, nutrition status. Will continue to monitor per moderate nutrition risk guidelines
[2017-02-15] MEDS: predniSONE 20 mg Tablet PO SCH (10:03)
[2017-02-15] MEDS: Hydroxychloroqine 200 mg Tablet PO SCH (10:04)
[2017-02-15] MEDS: Nystatin 100,000 Unit/Gm 15 Gm Powder TOPICAL SCH ×2 (10:05→21:24)
[2017-02-15] MEDS: cefTRIAXone Inj 2,000 MG in Dextrose 5% Minibag Plus 50 ML IV SCH (10:48)
[2017-02-15] MEDS ORDERED: 0.9% Sodium Chloride 250 ML ONE (10:49)
[2017-02-15 14:34] VITALS: BP 162/82; PULSE 87; RESP 20; O2SAT 96
--- NOTE | 2017-02-15 15:14 | NUR ---
Pain, Redness Patient continues to have some pain this shift, states that ordered and administered pain medications take pain from a 5-6/10 to a 2/10. Patient continues to have redness to the lower extremities. Care is ongoing.
--- NOTE | 2017-02-15 17:16 | PCM.PNMED ---
Subjective Date of Service Feb 15, 2017 Subjective No new complaints of chest pain, dyspnea, nausea or vomiting Exam Vital Signs Vital Sign - Last Date Time Temp Pulse Resp B/P Pulse Ox O2 Delivery O2 Flow Rate FiO2 02/15/17 14:34 36.8 87 20 162/82 96 Nasal Cannula 3.00 Intake and Output 02/14/17 02/14/17 02/15/17 Cumulative From/Thru 15:00 23:00 07:00 02/11/17 21:07 - 02/15/17 06:05 Intake Total 3224 ml 1584 ml 1646 ml 96393 ml Output Total 3350 ml 2800 ml 42590 ml Balance 3224 ml -1766 ml -1154 ml 4713 ml Intake Oral 1045 ml 600 ml 4221 ml IV Total 3224 ml 539 ml 1046 ml 26844 ml Output Urine Total 3350 ml 2800 ml 49417 ml # Bowel Movements 0 1 Exam Gen.- A+ O 3 no apparent distress. Morbidly obese female lying in bed sleeping, not roused to gentle stimuli Eyes-closed, normal eyelids, no drainage ENT- ears normal, nose normal Neck- supple/trach midline CVS-normal rate Lungs- respirations regular and nonlabored GI- NABS/NT soft, generous pannus Musc- moving 4 no obvious deformity Neuro- cranial nerves II through XII intact to gross examination, nonfocal Skin- warm and moist, there is an area of erythema in the suprapubic area under a skin fold, and her right lower extremity is erythematous from the ankle to the mid calf Psych-sleeping Lab and Diagnostics Result Diagram: 02/13/17 0404 02/13/17 0404 X-Rays, CTs and MRIs Chest Xray Interpretation: Rotated, poor inspiration. Density in the Left lower lobe, probably due to vessel crowding. No indication of pneumonia. View: Portable, 1 view Interpretation / Wet Read by: Wet read ED physician CT Abd / Pelvis Interpretation CONCLUSION: Limited study as described. No acute findings. Cirrhotic changes. Hepatosplenomegaly. Other findings as noted above. Electronically signed by Michael Benitez MD Study type: Abdominal CT IV contrast Interpretation / Wet Read by: Interpret - Radiologist 12-lead ECG 02/12/17 04:50 - sinus tachycardia 105, normal conduction intervals, QTC 466, no acute ST or T-wave changes. Cardiac Echo Impressions Echocardiogram Report Name: LUIS ANGEL IRENE Study Date: 02/12/2017 Interpretation Summary The left ventricle is mildly dilated. The ejection fraction is estimated to be 50-55%. There is apical inferior wall hypokinesis. The E/A ratio is reversed with an elevated E/E', suggesting impaired early relaxation of the left ventricle with possible increased filling pressures. Consider JACQUELIN if clinically indicated. There is no significant valvular heart disease. . Additional Diagnostics ABG DateTimeAnalyzed 21:39:00 -_ pH ____7.466 - 7.350 7.450 pCO2 ___37.0__ -mmHg 35.0 45.0 pO2 ___52.8__ -mmHg 69.0 116 HCO3- ___26.3__ -mmol/L 22.0 26.0 Assessment & Plan Patient is a 56 y.o. F with past medical history of necrotizing fasciitis in the right groin area, status post lengthy hospitalization at [facility] in March and April, during which time she underwent extensive surgical debridement, ultimately with discharge to [facility] for ongoing care, morbid obesity, has uncontrolled type II diabetes, and RA. Patient is admitted for treatment of sepsis, right lower leg cellulitis extending to groin and perineum, elevated troponin, hyperglycemia, azotemia. 02/14 meeting, medically complex patient for the first time. She has been weaned off of pressors, shock has been resolved, treating cellulitis as per ID recommendations, adjusting insulin for better control. 02/15 patient medically stable plan to discharge probably 02/16 in a.m. Another 10 days of IV ceftriaxone and this can be done by peripheral line in care home per Dr Saxena, does not need PICC -02/25 #HTN- A she not previously on blood pressure meds, has trended up from 110s now to 160s, may benefit from lisinopril please follow-up #. Right leg Cellulitis. Present on admission. US showed no crepitus, gas bubbles in tissue, exam limited by patient's body habitus. - Wound care consulted - Infectious disease consult for antibiotic management - Currently on ceftriaxone, clindamycin - another 10 days of IV ceftriaxone -10 can be done by peripheral line in care home per Dr Saxena doesn't need picc #. Hyperglycemia; type II diabetes mellitus uncontrolled, acute on chronic hyperglycemia. BS and 68-380 02/14, BS 111-162 on current regimen 02/15 no changes -50 units Lantus 02/04 9 PM, adding lisinopril 15U prandial to high-dose sliding scale 02/14 #. Transaminitis, acute.-" Shock liver"on Segura and possible impending cirrhosis - Elv AST 51, ALT 58, Alk phos 187 on admission - Hepatitis viral panel (-) 02/14 #. Severe septic shock, acute. - She required IV norepinephrine. stress dose steroids. -Resolved 02/14 - Discontinue IV fluids, encourage oral intake - Discontinued hydrocortisone, switched to oral prednisone at 2x usual dose #. Troponin elevation, acute. EKG unremarkable, echo mild R heart dysfcn. demand ischemia . Resolved 02/14 -If patient has not had risk stratification recently, this should be done when acute event his past does not necessarily need to be done as inpatient.02/14 #Rheumatoid Arthritis - Previously On chronic prednisone 10 mg per day and Plaquenil - Patient given stress dose of steroid in ED - Stress dose hydrocortisone per ICU service - On double dose 02/14 , reduce to baseline prednisone discharge #Morbid Obesity class III -Appropriate bariatric nursing interventions # Hx of HFpEF -ejection fraction is estimated to be 55-60%. # Hx Graves Disease; presumed treated now on thyroxine replacement. -Continue home levothyroxine dose #obstructive sleep apnea#Asthma - CPAP PRN HS ordered -Duoneb Q6 PRN #GERD -Continue usual medication Medically complex patient at high risk of complications GI Prophylaxis: H2 aric VTE Prophylaxis: Sub-Q Heparin (Unfractionated) VTE Mechanical Devices: Intermittant Pneumatic CD Resuscitation Status: CPR: Attempt Resuscitation Iam Gusman MD Feb 15, 2017 17:16
--- NOTE | 2017-02-15 17:51 | PROG NOTE ---
[address] [address] PROGRESS NOTE PATIENT: LUIS ANGEL IRENE : 1960 MR#: [id number] ADMIT: 02/12/2017 JOB ID: [id number] DATE: 02/15/2017 REASON FOR FOLLOWUP: Severe right lower extremity streptococcal cellulitis. INTERVAL HISTORY: Overnight, the patient reports that there has been some but very slow improvement in the erythema and tenderness involving the right lower extremity. She has had no overt fevers, chills, shortness of breath overnight. No nausea or vomiting. PHYSICAL EXAMINATION: Reveals an afebrile, morbidly obese woman lying supine in her hospital bed. Temp 36.8, pulse 87, respiratory rate 20, blood pressure 162/82. She is saturating well on room air. Mental status is clear. Oral cavity unremarkable. Lungs distant but clear. Abdomen obese, soft, nontender. The right lower extremity cellulitis is improving day by day. The cellulitis is dramatically decreased in the area between the knee and the suprapubic region on the right. Below the knee, there is still a fair amount of cellulitis, but it is starting to wrinkle just a little bit, and there is less warmth and perhaps a little less erythema than previously. LABORATORIES: Include a white count of 4400, platelet count 67,000. Creatinine 0.72. Procalcitonin is down to 2.47 from a peak of 5.75. Recall that the streptozyme was grossly positive at 734. Followup blood cultures are negative. IMPRESSION: This patient has a very severe group A strep infection of the right lower extremity. Recall that last year she had a necrotizing Dutch's type processes treated at [facility]. At this point, she is starting to improve and is probably ready to go back to the [facility] fairly soon. RECOMMENDATIONS: 1. Will continue with both clindamycin and ceftriaxone for the next day or two. 2. Once clear cut additional improvement is seen, she could be discharged back to the [facility] to complete a course of ceftriaxone at 10-14 days. The clindamycin need not be continued after discharge and should not be. 3. This case discussed today with Dr. Gusman.
--- NOTE | 2017-02-15 19:32 | NUR ---
Pain management Pt. c/o strong 05/27 pain this afternoon r/t her shingles. Lyrica and percocet administered. Pt. reported relief an hour after administration.
[2017-02-15 20:36] VITALS: BP 157/91; PULSE 104; RESP 20; O2SAT 93
[2017-02-15] MEDS: Insulin GLARgine 100 Unit/mL Syringe SUBQ SCH (21:23)
[2017-02-16] MEDS: Clindamycin Inj 900 MG in IV Premix 1 EACH IV SCH ×2 (00:51→07:53)
[2017-02-16] MEDS: oxyCODONE-Acetamin 5-325 mg Tablet PO PRN ×3 (01:20→11:59)
--- NOTE | 2017-02-16 01:43 | NUR ---
IV/ Q2 Patient IV infiltrated, removed from right forearm, new IV placed in left forearm. Right arm relieved heating pad and elevated. Patient refusing Q2 turns, requesting aide to return "later". This RN able to elevate arms, rearrange pillows underneath ankles, will continue to encourage turns.
[2017-02-16] MEDS: Lactated Ringer's 1,000 ML IV SCH (02:47)
[2017-02-16 04:59] VITALS: BP 128/79; PULSE 95; RESP 20; O2SAT 93
[2017-02-16] MEDS: Insulin LISPRO 300 Unit/3 mL Inj SUBQ SCH ×2 (07:54→11:58)
[2017-02-16] MEDS: Nystatin 100,000 Unit/Gm 15 Gm Powder TOPICAL SCH (07:55)
[2017-02-16] MEDS: Hydroxychloroqine 200 mg Tablet PO SCH (07:55)
[2017-02-16] MEDS: predniSONE 20 mg Tablet PO SCH (07:55)
[2017-02-16 07:56] LABS: BASOPHILS % (AUTO) 0.6 % (0-3); EOSINOPHILS % (AUTO) 2.3 % (0-5); Mean Corpuscular Hemoglobin 30.1 pg (27.0-35.0); Mean Corpuscular Volume 91.6 fL (81-100); NEUTROPHILS % (AUTO) 64.4 % (40-74); Platelet Count 111 bil/L (150-400)
[2017-02-16] MEDS: Budesonide 0.5 mg/2 mL Inhalation Solution NEB SCH (08:30)
[2017-02-16] MEDS ORDERED: 0.9% Sodium Chloride 100 ML ONE (08:42)
--- NOTE | 2017-02-16 08:45 | NUR ---
Pain Patient reported 6/10 shoulder pain. 1 tab of Percocet given. Patient denies nausea at this time. Patient repositioned for comfort. Call light and tray table within reach. Will continue to monitor patient hourly.
[2017-02-16] MEDS: cefTRIAXone Inj 2,000 MG in Dextrose 5% Minibag Plus 50 ML IV SCH (08:47)
--- NOTE | 2017-02-16 09:24 | NUR ---
[facility] signed. Olinda Sampson WHARF OPERATOR
--- NOTE | 2017-02-16 10:45 | PCM.DIMED ---
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 Wean down to 20 mg on 02/16 Test Results X-Rays, CTs and MRIs Chest Xray Interpretation: Rotated, poor inspiration. Density in the Left lower lobe, probably due to vessel crowding. No indication of pneumonia. View: Portable, 1 view Interpretation / Wet Read by: Wet read ED physician CT Abd / Pelvis Interpretation CONCLUSION: Limited study as described. No acute findings. Cirrhotic changes. Hepatosplenomegaly. Other findings as noted above. Electronically signed by Michael Benitez MD Study type: Abdominal CT IV contrast Interpretation / Wet Read by: Interpret - Radiologist 12-lead ECG 02/12/17 04:50 - sinus tachycardia 105, normal conduction intervals, QTC 466, no acute ST or T-wave changes. Cardiac Echo Impressions Echocardiogram Report Name: LUIS ANGEL IRENE Study Date: 02/12/2017 Interpretation Summary The left ventricle is mildly dilated. The ejection fraction is estimated to be 50-55%. There is apical inferior wall hypokinesis. The E/A ratio is reversed with an elevated E/E', suggesting impaired early relaxation of the left ventricle with possible increased filling pressures. Consider JACQUELIN if clinically indicated. There is no significant valvular heart disease. . Additional Diagnostics ABG DateTimeAnalyzed 21:39:00 -_ pH ____7.466 - 7.350 7.450 pCO2 ___37.0__ -mmHg 35.0 45.0 pO2 ___52.8__ -mmHg 69.0 116 HCO3- ___26.3__ -mmol/L 22.0 26.0 Diet Heart Healthy, Diabetic Activity Other (PT/OT/forensic social worker care at assisted facility) Call your provider Fever or Chills, Shortness of breath, Chest pain Patient Instructions Mrs. Irene, you were treated for leg cellulitis and a severe infection that required medicines to keep the blood pressure up. He was giving high-dose steroids during this time and you have been titrated down to normal home dose of prednisone. You will be discharged with IV ceftriaxone to be completed 3 of peripheral IV site. Your last dose of ceftriaxone will be on 02/24. U will be discharged to a assisted facility to optimize her rehabilitation, strength, function and continued IV antibiotic therapy Please follow up with at [facility] Follow-up plan As above Follow-up Provider: Niles Alejo DO Follow-up with PCP in: Other (as scheduled nursing facility and continue follow -up when discharged) Lico Kraft DO Feb 16, 2017 10:45
[2017-02-16] MEDS ORDERED: INSU100I13 SUBQ (10:52)
[2017-02-16] MEDS ORDERED: ROC2I IVPB (10:52)
[2017-02-16] MEDS ORDERED: FAMO20T PO (10:52)
--- NOTE | 2017-02-16 10:57 | NUR ---
Case Management D: Plan for d/c today to [facility]. Clinicals faxed to [facility] for SNF authorization. Needing IV abx for approx 10 more days. Addendum: 02/16/17 at 1253 by BEV PETER SS Authorization for d/c to SNF given by Evi at [facility] SNF auths.
--- NOTE | 2017-02-16 11:03 | PCM.DC.MED ---
Discharge Summary Date of Service Feb 16, 2017 Dates of Hospitalization Date of Hospital Admission Feb 12, 2017 at 00:39 Date of Discharge: Feb 16, 2017 Providers: Admitting Physician: Levi Feldman MD Primary Care Physician: Fiorella Courtney MD Attending Physician: Levi Feldman MD Diagnosis at Time of Discharge Diagnosis at Time of Discharge Right leg cellulitis, strep Severe septic shock, acquiring IV norepinephrine and stress dose steroids History of necrotizing fasciitis and right groin status post lengthy Hospitalization at [facility] in April 2016 Type II diabetes Hypertension Heart failure with preserved EF Early Cirrhosis, 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 Saxena Procedures XRay, CTs & MRIs Chest Xray Interpretation: Rotated, poor inspiration. Density in the Left lower lobe, probably due to vessel crowding. No indication of pneumonia. View: Portable, 1 view Interpretation / Wet Read by: Wet read ED physician CT Abd / Pelvis Interpretation CONCLUSION: Limited study as described. No acute findings. Cirrhotic changes. Hepatosplenomegaly. Other findings as noted above. Electronically signed by Michael Benitez MD Study type: Abdominal CT IV contrast Interpretation / Wet Read by: Interpret - Radiologist ECG 12 Lead 02/12/17 04:50 - sinus tachycardia 105, normal conduction intervals, QTC 466, no acute ST or T-wave changes. Cardiac Echo Impression Echocardiogram Report Name: LUIS ANGEL IRENE Study Date: 02/12/2017 Interpretation Summary The left ventricle is mildly dilated. The ejection fraction is estimated to be 50-55%. There is apical inferior wall hypokinesis. The E/A ratio is reversed with an elevated E/E', suggesting impaired early relaxation of the left ventricle with possible increased filling pressures. Consider JACQUELIN if clinically indicated. There is no significant valvular heart disease. . Other Diagnostics ABG DateTimeAnalyzed 21:39:00 -_ pH ____7.466 - 7.350 7.450 pCO2 ___37.0__ -mmHg 35.0 45.0 pO2 ___52.8__ -mmHg 69.0 116 HCO3- ___26.3__ -mmol/L 22.0 26.0 Brief History History of present illness as per admitting physician: Patient is a 56 y.o. F with past medical history of necrotizing fasciitis in the right groin area, status post lengthy hospitalization at [facility] in March and April, during which time she underwent extensive surgical debridement, ultimately with discharge to [facility] for ongoing care, morbid obesity, has uncontrolled type II diabetes, and RA. She presented to ED via EMS with complaint of several day pain of right lower extremity with redness and swelling. Patient stated that two days ago she noticed bleeding from her right groin, and redness and swelling to the skin with increased warmth and pain, over the next 24 hours she stated that the redness spread to the left groin an down her right upper thigh. Today patient noted that the redness, swelling, pain spread down her right leg to her ankle. Additionally, prior to admission patient began to experience "hot flashes," dizziness, chills , fast heart beat, cough and increased pain over her right leg. Patient described the pain as sharp, severe rated 7/10 diffusely to her right groin and leg. Pain is made worse by palpation and movement, pain is relieved by nothing. Patient stated that she had a similar skin infection months ago but no where near this bad, patient last seen by wound care clinic 09/26/16 for followup and treatment of the wound involving right groin and right lower abdomen that was initially an abscess that was drained surgically. She denies shortness of breath , chest pain, chest pressure, change in vision, headache, syncope, recent use of antibiotics, use of anticoagulants. In ED given IV Vancomycin, Meropenem, Clindamycin, 3 L NS with refractory hypertension. Hospital Course Patient is a 56 y.o. F with past medical history of necrotizing fasciitis in the right groin area, status post lengthy hospitalization at [facility] in March and April, during which time she underwent extensive surgical debridement, ultimately with discharge to [facility] for ongoing care, morbid obesity, has uncontrolled type II diabetes, and RA. Patient is admitted for treatment of sepsis, right lower leg cellulitis extending to groin and perineum, elevated troponin, hyperglycemia, azotemia. 02/14 meeting, medically complex patient for the first time. She has been weaned off of pressors, shock has been resolved, treating cellulitis as per ID recommendations, adjusting insulin for better control. 02/15 patient medically stable plan to discharge probably 02/16 in a.m. Another 10 days of IV ceftriaxone and this can be done by peripheral line in assisted per Dr Saxena, does not need PICC -02/25 #HTN- A she not previously on blood pressure meds, intermittent elevations in the 160s, consideration of lisinopril will be held at discharge due to blood pressures improved to the 120s at the time of discharge. Given current infection will consider lisinopril once completing antibiotics and repeat blood pressures. Like steroids play a role as well #. Right leg Cellulitis. Present on admission. US showed no crepitus, gas bubbles in tissue, exam limited by patient's body habitus. - Wound care consulted - Infectious disease consult for antibiotic management - Currently on ceftriaxone, clindamycin - IV ceftriaxone until 02/24. As above, antibiotics can be done by peripheral line in assisted per Dr Saxena doesn't need picc #. Hyperglycemia; type II diabetes mellitus uncontrolled, acute on chronic hyperglycemia. BS and [id number] 02/14, BS 111-162 on current regimen 02/15 no changes -50 units Lantus 02/04 9 PM, adding lispro 15U prandial to high-dose sliding scale 02/14 - this is in setting of infection and high-dose steroids, have titrated down to Lantus 20 units nightly at the time of discharge. This is an increase from her home regimen of Lantus 5 units that was reported. #. Transaminitis, acute.-" Shock liver"on Segura and possible impending cirrhosis , as seen on CT - Elv AST 51, ALT 58, Alk phos 187 on admission - Hepatitis viral panel (-) 02/14 #. Severe septic shock, acute. - She required IV norepinephrine. stress dose steroids. -Resolved 02/14 - Discontinue IV fluids, encourage oral intake - Discontinued hydrocortisone, switched to oral prednisone at 2x usual dose --> now titrated to home regimen of 10 mg, added famotidine for gastric protection #. Troponin elevation, acute. EKG unremarkable, echo mild R heart dysfcn. demand ischemia . Resolved 02/14 -If patient has not had risk stratification recently, this should be done when acute event his past does not necessarily need to be done as inpatient.02/14 #Rheumatoid Arthritis - Previously On chronic prednisone 10 mg per day and Plaquenil - Patient given stress dose of steroid in ED - Stress dose hydrocortisone per ICU service - On double dose 02/14 , reduce to baseline prednisone discharge #Morbid Obesity class III -Appropriate bariatric nursing interventions # Hx of HFpEF -ejection fraction is estimated to be 55-60%. # Hx Graves Disease; presumed treated now on thyroxine replacement. -Continue home levothyroxine dose #obstructive sleep apnea#Asthma - CPAP PRN HS ordered -Duoneb Q6 PRN #GERD -Continue usual medication Medically complex patient at high risk of complications Exam Vital Signs (Last) Date Time Temp Pulse Resp B/P Pulse Ox O2 Delivery O2 Flow Rate FiO2 02/16/17 04:59 36.6 95 20 128/79 93 Room Air 02/15/17 14:34 3.00 Exam Gen.- A+ O 3. Morbidly obese female up in chair, no acute distress alert Eyes-closed, normal eyelids, no drainage ENT- ears normal, nose normal Neck- supple/trach midline CVS-normal rate, no rubs/clicks/murmurs appreciated Lungs- respirations regular and nonlabored GI- NABS/NT soft, generous pannus Musc- moving 4 no obvious deformity Neuro- cranial nerves II through XII intact to gross examination, nonfocal Skin- warm and moist, notable area of erythema in the suprapubic area under a skin fold, and her right lower extremity is erythematous from the ankle to the mid calf, nontender with pitting edema 2+ Psych-normal affect and mood Test 02/11/17 21:25 02/11/17 23:27 02/12/17 01:15 02/12/17 09:00 Erythrocyte Sedimentation Rate 69mm/hr (0-40) Pro-B-Type Natriuretic Peptide 737.9pg/mL (0-287) Lipase 17U/L (13-60) Urine Color Dark yellow (YELLOW) Urine Appearance Hazy (CLEAR,HAZY) Urine pH 6.5 (5.0-8.0) Urine Specific [place] 1.010 (1.003-1.035) Urine Protein Tracemg/dL (NEG,TRACE) Urine Glucose (UA) Negativemg/dL (NEGATIVE) Urine Ketones Negativemg/dL (NEGATIVE) Urine Occult Blood Negative (NEGATIVE) Urine Nitrite Positive (NEGATIVE) Urine Bilirubin Negative (NEGATIVE) Urine Urobilinogen Normalmg/dL (NORMAL) Urine Leukocyte Esterase Trace (NEGATIVE) Urine RBC 0-2/hpf (0-2) Urine WBC 11-50/hpf (0-5) Urine Epithelial Cells Occasional/hpf (NONE-MOD) Urine Crystals Amorphous urates (NONE Urine Bacteria Many/hpf (NONE-FEW) Urine Hyaline Casts None/lpf (NONE) Urine Granular Casts None seen (NONE SEEN) Urine Waxy Casts None seen (NONE SEEN) Urine Red Blood Cell Casts None seen (NONE SEEN) Urine White Blood Cell Casts None seen (NONE SEEN) Urine Mucus Present (None Seen) Urine Trichomonas None seen (NONE SEEN) Urine Yeast None (NONE SEEN) Urine Culture Reflexed Indicated Hemoglobin A1c 9.5% (4.8-5.6) Streptozyme 733.6IU/mL (0.0-200.0) Troponin T 0.069ug/L (0.0-0.011) Test 02/12/17 10:40 02/12/17 12:25 02/13/17 04:04 02/15/17 04:44 Activated Partial Thromboplast Time 48.8sec (22.8-33.0) Lactic Acid Level 1.7mmol/L (0.4-2.0) Liver Fibrosis Score 0.55 (0.00-0.21) Liver Fibrosis Stage Comment (.) Liver Necroinflammatory Activity Comment (.) Liver Necroinflammatory Score 0.41 (0.00-0.17) Liver Necroinflammatory Grade A1-a2 (.) Hepatitis B Surface Antigen Negative (Negative) Hepatitis B Surface Antibody Non reactive (.) Hepatitis B Core Total Antibody Negative (Negative) Hepatitis C Antibody <0.1s/co ratio (0.0-0.9) HCV Liver Fibrosis Comment Comment (.) HCV Liver Fibrosis Limitations Comment (.) HCV Liver Fibrosis Test Interpret Comment (.) Prothrombin Time 11.8sec (8.1-12.5) Prothromb Time International Ratio 1.10ratio Phosphorus Level 2.9mg/dL (2.5-4.9) Magnesium Level 2.0mg/dL (1.6-2.6) Total Bilirubin 0.5mg/dL (0.0-1.2) Aspartate Amino Transf (AST/SGOT) 27U/L (0-50) Alanine Aminotransferase (ALT/SGPT) 40U/L (0-32) Alkaline Phosphatase 143U/L (25-150) Total Protein 5.9g/dL (6.4-8.4) Albumin 2.6g/dL (3.4-5.0) Prealbumin 10mg/dL (20-40) Procalcitonin 2.47ng/mL (0.00-0.08) Test 02/16/17 07:20 White Blood Count 4.7th/mm3 (3.8-10.1) Red Blood Count 4.39mil/mm3 (3.90-5.20) Hemoglobin 13.2g/dL (12.0-15.6) Hematocrit 40.2% (35.0-46.0) Mean Corpuscular Volume 91.6fL (81-100) Mean Corpuscular Hemoglobin 30.1pg (27.0-35.0) Mean Corpuscular Hemoglobin Concent 32.8% (32.0-37.0) Red Cell Distribution Width 13.9% (12.3-15.4) Platelet Count 111bil/L (150-400) Neutrophils (%) (Auto) 64.4% (40-74) Lymphocytes (%) (Auto) 22.2% (14-46) Monocytes (%) (Auto) 9.0% (4-12) Eosinophils (%) (Auto) 2.3% (0-5) Basophils (%) (Auto) 0.6% (0-3) Sodium Level 141mEq/L (134-144) Potassium Level 4.1mEq/L (3.5-5.2) Chloride Level 99mEq/L (97-108) Carbon Dioxide Level 29mmol/L (18-29) Blood Urea Nitrogen 11mg/dL (6-24) Creatinine 0.67mg/dL (0.57-1.00) Estimat Glomerular Filtration Rate 131mL/min (>59) Glucose Level 190mg/dL (60-99) Calcium Level 9.0mg/dL (8.5-10.1) Microbiology Results Negative MRSA screen Fungal blood culture pending No bacterial blood culture positive result Discharge Medications Discharge Medications Amino AC/Protein Hydr/Whey Pro (Prosource Protein Liquid) 946 Ml Liquid 30 ML PO BID (Reported) Amitriptyline (Amitriptyline) 25 Mg Tab 50 MG PO HS (Reported) Ceftriaxone Sod (Ceftriaxone) 2 Gm Vial 2 GM IVPB DAILY Prescribed by: ZAYNAB CANALES DO Famotidine (Pepcid) 20 Mg Tablet 20 MG PO BID Prescribed by: ZAYNAB CANALES DO Ferrous Sulfate (Ferrous Sulfate) 325 Mg Tablet 325 MG PO BID (Reported) Furosemide (Furosemide) 40 Mg Tablet 40 MG PO DAILY (Reported) Hydrocodone-Acetaminophen 5-325 mg (Hydrocodone-Acetaminophen 5-325 mg) 1 Each Tablet 1 EACH PO TID (Reported) Hydroxychloroquine Sulfate (Hydroxychloroquine Sulfate) 200 Mg Tablet 200 MG PO DAILY (Reported) Insulin Glargine (Lantus U100 Solostar Insulin Pen) 100 Unit/1 Ml Insuln.pen 20 UNIT SUBQ QAM Prescribed by: ZAYNAB CANALES DO Insulin Lispro (HumaLOG U100 Insulin Pen) 100 Unit/1 Ml Insuln.pen UNIT SUBQ ACHS (Reported) per sliding scale Levothyroxine (Levothyroxine) 75 Mcg Tablet 75 MCG PO DAILY (Reported) Nystatin (Nystatin) 1 Each Powder.ea. 1 EACH TOPICAL BID (Reported) apply to groin Polyethylene Glycol 3350 (Miralax) 17 Gm Powd.pack 17 GM PO DAILY (Reported) Potassium Chloride ER (Potassium Chloride ER) 20 Meq Tablet.er 40 MEQ PO DAILY ( Reported) TAKE WITH FOOD Prednisone (PredniSONE) 20 Mg Tablet 10 MG PO DAILY Prescribed by: JUMA OGLESBY MD Pregabalin (Lyrica) 50 Mg Capsule 50 MG PO TID (Reported) Zinc Sulfate (Zinc-220) 220 Mg Capsule 220 MG PO DAILY (Reported) As needed Acetaminophen (Acetaminophen) 325 Mg Tablet 650 MG PO Q4H PRN PRN For Pain ( Reported) Albuterol HFA (Proair HFA) 8.5 Gm Hfa.aer.ad 2 PUFFS INHALATION Q4H PRN PRN For Shortness of Breath (Reported) Albuterol Neb Soln (Albuterol Neb Soln) 2.5 Mg/3 Ml Vial.neb 2.5 MG INHALATION Q4H PRN PRN For Shortness of Breath (Reported) Clotrimazole 2% (Gyne-Lotrimin 3 2%) 21 Gm Cream.appl 1 APPLIC TOPICAL DAILY PRN PRN groin rash (Reported) Loperamide (Loperamide) 2 Mg Capsule 2 MG PO QID PRN PRN For Diarrhea or Loose Stool (Reported) Magnesium Hydroxide (Milk of Magnesia) 400 Mg/5 Ml Oral.susp 30 ML PO DAILY PRN PRN For Constipation (Reported) Na Phos,M-B/Na Phos,Di-Ba (Fleet Enema) 133 Ml Enema 133 ML RC DAILY PRN PRN For Constipation (Reported) Tramadol (Tramadol) 50 Mg Tablet 50-100 MG PO Q6H PRN PRN For Pain (Reported) Additional med instructions Patient will be discharged on home regimen of prednisone 10 mg daily after stress test steroids given while hospitalized. Wean down to 20 mg on 02/16 Followup Plan Follow-up plan As above Discharge Diet: Heart Healthy, Diabetic Discharge Activity: Other (PT/OT/psychosocial rehabilitation counselor care at care home facility ) Patient Instructions Mrs. Irene, kyung were treated for leg cellulitis and a severe infection that required medicines to keep the blood pressure up. He was giving high-dose steroids during this time and you have been titrated down to normal home dose of prednisone. You will be discharged with IV ceftriaxone to be completed 3 of peripheral IV site. Your last dose of ceftriaxone will be on 02/24. U will be discharged to a care home facility to optimize her rehabilitation, strength, function and continued IV antibiotic therapy Please follow up with at [facility] Follow-up Provider: Niles Alejo DO Follow-up with PCP in: Other (as scheduled nursing facility and continue follow -up when discharged) Time spent 45 minutes spent with evaluation and management including discharge of this patient. Greater than 50% time spent [id number] counseling copies to: Fiorella Courtney MD; Niles Alejo David DO Feb 16, 2017 10:57
--- NOTE | 2017-02-16 11:47 | NUR ---
Social Work-Readiness for Discharge Data: EMR reviewed. Pt is on day 4 of hospitalization for leg sepsis per H&P. Pt is medically stable, anticipate discharge later today. UR RN sent [facility] pt's clinicals for authorization, authorization pending. JULIO spoke with Khushboo, admissions at [facility] regarding pt's discharge, Khushboo agreeable to accepting pt today pending insurance authorization. Khushboo confirmed pt able to be discharged with peripheral line for IV abx. JULIO updated pt at bedside regarding discharge plan, provided pt with requested DPOA paperwork. Pt to discharge back to [facility] with MD Alejo to follow pending insurance authorization. [facility] to set up transportation when authorized. JULIO to create packet and fax orders. Paperwork in chart. SW will continue to follow. Assessment: Pt who will return from SNF with IV abx. Plan: Pt to discharge to [facility] pending insurance authorization. [facility] to set up transportation when authorized. JUILO to create packet and fax orders. Paperwork in chart. JULIO will continue to follow. YORDAN Wade
--- NOTE | 2017-02-16 13:24 | NUR ---
Social Work- Discharge Data: EMR reviewed. Pt is on day 4 of hospitalization for sepsis leg and perineal cellulitis per H&P. Pt is medically stable for discharge. Pt will require 10 days of IV abx after discharge. [facility] has authorized pt's SNF discharge. JULIO spoke with Khushboo at [facility] regarding discharge, Khushboo agreeable to accepting pt today. JULIO created packet and faxed orders. Khushboo at [facility] set up transportation via cabulance for 1430. JULIO updated pt at bedside, pt declined having SW contact any [facility] regarding discharge. Pt, RN, UC, and [facility] all updated and agreeable to plan. Assessment: Pt who will return to [facility] Plan: Pt to discharge to SNF to complete IV Abx. Pt to discharge to [facility] via cabulance at 1430. Pt, RN, UC, and [facility] all updated and agreeable to plan. Olinda Sampson, BELT CUTTER
--- NOTE | 2017-02-16 14:26 | NUR ---
Discharge Patient discharged to [facility]. IV in place for IV antibiotics. Manav Brice at 1340. Reported called to Francoise. LYNDA gathered all patient's belongings. Awaiting transport. Addendum: 02/16/17 at 1438 by RODRIGUEZ MURILLO RN Transport arrived. Patient ambulated from chair to W/C. Warm blankets placed over patient.
== END 2017-02-16 14:37 | DRG 871 ==
LOC: SED 21:03 → CCU 02-12 00:39 → PCC 02-12 03:29 → CCU 02-12 05:30 → PCC 02-12 15:58 → OSC 02-13 15:43
PROVIDERS: ADMIT Hospitalist; ATTEND Hospitalist
PROC: 4A033B1 Measurement of Arterial Pressure, Peripheral, Percutaneous Approach (ICD-10-PCS; principal; 2017-02-12)
DX: A41.9 Sepsis, unspecified organism (principal); R65.21 Severe sepsis with septic shock; L03.115 Cellulitis of right lower limb; Z68.42 Body mass index [BMI] 45.0-49.9, adult; I50.32 Chronic diastolic (congestive) heart failure; E87.2 Acidosis; B95.61 Methicillin susceptible Staphylococcus aureus infection as the cause of diseases classified elsewhere; E66.01 Morbid (severe) obesity due to excess calories; M06.9 Rheumatoid arthritis, unspecified; J45.909 Unspecified asthma, uncomplicated; E11.65 Type 2 diabetes mellitus with hyperglycemia; E83.42 Hypomagnesemia; E86.0 Dehydration; E05.00 Thyrotoxicosis with diffuse goiter without thyrotoxic crisis or storm; G47.33 Obstructive sleep apnea (adult) (pediatric); K21.9 Gastro-esophageal reflux disease without esophagitis; D69.6 Thrombocytopenia, unspecified; Z79.4 Long term (current) use of insulin; Z79.51 Long term (current) use of inhaled steroids; Z88.0 Allergy status to penicillin